=== PATIENT | male | born 1940 | race Caucasian/White ===

== ENCOUNTER 2020-07-16 07:42 | Outpatient (REF) | payer MEDICARE, SELFPAY ==
[2020-07-16 08:30] LABS: Basophils Percent Auto 0.6 % (0-2); Imm Gran Abs Auto 0.01 X10*3/uL (0.00-0.03); Imm Gran Pct Auto 0.2 % (0.0-0.4); MANUAL DIFF FLAG SCAN; Mean Platelet Volume 10.7 fL (9.4-12.4); PLT CLUMP 1; SCAN SMEAR FLAG 1
[2020-07-16 08:32] LABS: Eosinophils Absolute Auto 0.3 X10*3/uL (0.0-0.4); Hematocrit 40.8 % (42-52); Hemoglobin 13.6 g/dl (14.0-18.0); Lymphocytes Absolute Auto 2.5 X10*3/uL (1.2-4.9); Lymphocytes Percent Auto 38.8 % (20-40); Mean Corpuscular HGB Conc 33.3 g/dl (31.0-36.0); Mean Corpuscular Hemoglobin 31.4 pg (27.0-33.0); Mean Corpuscular Volume 94.2 fL (80-98); Monocytes Absolute Auto 0.7 X10*3/uL (0.1-1.2); Monocytes Percent Auto 10.4 % (2-11); Platelet Count 146 X10*3/uL (160-400); Red Blood Count 4.33 X10*6/uL (4.60-5.80); White Blood Count 6.5 X10*3/uL (4.8-10.8)
[2020-07-16 08:50] LABS: B Type Natriuretic Peptide 67 pg/mL (<100)
[2020-07-16 08:56] LABS: Estimated Average Glucose 117 mg/dL; Hemoglobin A1c % 5.7 %
[2020-07-16 09:06] LABS: Glucose Urine UA NEG (NEG); Leukocyte Esterase Urine NEG (NEG); Nitrite Urine NEG (NEG); Specific Gravity - Urine 1.025 (1.005-1.025); Urine Blood NEG (NEG); Urine Ketones NEG (NEG); Urine Protein NEG (NEG-TRACE)
[2020-07-16 09:10] LABS: Appearance Urine CLEAR; Color Urine YELLOW
[2020-07-16 09:17] LABS: Alanine Aminotransferase 33 U/L (0-40); Albumin Level 4.3 g/dL (3.5-5.0); Alkaline Phosphatase 72 U/L (39-117); Anion Gap 13 (12-20); Aspartate Amino Transferase 32 U/L (5-37); Bilirubin Total 0.6 mg/dL (0.0-1.0); Blood Urea Nitrogen 27 mg/dL (9-16); Calcium 8.9 mg/dL (8.4-10.2); Carbon Dioxide 28 mmol/L (22-29); Chloride 103 mmol/L (96-108); Cholesterol 142 mg/dL; Estimated Glomerular Filt Rate 53; Glucose Fasting 103 mg/dL (60-99); HDL Cholesterol 64 mg/dL; LDL Cholesterol Calculated 61 mg/dl; Potassium 4.3 mmol/L (3.3-5.1); Sodium 140 mmol/L (135-145); Total Protein 6.6 g/dL (6.5-8.0); Triglycerides 85 mg/dL
[2020-07-16 09:29] LABS: RBC Urine 0-2 /HPF (0); Squamous Epithelial Cell Urine TRACE /LPF; WBC Urine 0 /HPF (0-4)
== END 2020-07-16 07:43 | disposition home or self-care (01) ==
LOC: HO.LAB 07:42
PROVIDERS: PCP Internal Medicine; Visit Provider Internal Medicine
DX: I11.0 Hypertensive heart disease with heart failure (principal); I50.20 Unspecified systolic (congestive) heart failure; E78.00 Pure hypercholesterolemia, unspecified; R73.01 Impaired fasting glucose; I25.119 Atherosclerotic heart disease of native coronary artery with unspecified angina pectoris; I63.9 Cerebral infarction, unspecified
CPT/HCPCS: 36415; 80053; 80061; 81001; 83036; 83880; 85025

== ENCOUNTER 2021-01-14 09:52 | Outpatient (REF) | payer MEDICARE, SELFPAY ==
[2021-01-14 10:51] LABS: Eosinophils Absolute Auto 0.2 X10*3/uL (0.0-0.4); Mean Corpuscular Hemoglobin 31.3 pg (27.0-33.0); Mean Corpuscular Volume 93.3 fL (80-98); Monocytes Percent Auto 10.7 % (2-11); Red Cell Distribution Width 12.6 % (11.0-16.0)
[2021-01-14 10:53] LABS: Basophils Absolute Auto 0.1 X10*3/uL (0.0-0.2); Eosinophils Percent Auto 4.6 % (0-4); Glucose Urine UA NEG (NEG); Hematocrit 40.3 % (42-52); Hemoglobin 13.5 g/dl (14.0-18.0); Imm Gran Abs Auto 0.02 X10*3/uL (0.00-0.03); Imm Gran Pct Auto 0.4 % (0.0-0.4); Leukocyte Esterase Urine NEG (NEG); Lymphocytes Absolute Auto 1.3 X10*3/uL (1.2-4.9); Lymphocytes Percent Auto 25.2 % (20-40); Mean Corpuscular HGB Conc 33.5 g/dl (31.0-36.0); Mean Platelet Volume 11.2 fL (9.4-12.4); Monocytes Absolute Auto 0.6 X10*3/uL (0.1-1.2); Neutrophils Absolute Auto 3.1 X10*3/uL (2.0-8.3); Neutrophils Percent Auto 58.1 % (45-73); Nitrite Urine NEG (NEG); Platelet Count 121 X10*3/uL (160-400); Red Blood Count 4.32 X10*6/uL (4.60-5.80); UACC Culture Trigger NO; Urine Blood TRACE (NEG); Urine Ketones NEG (NEG); Urine Protein NEG (NEG-TRACE); White Blood Count 5.2 X10*3/uL (4.8-10.8)
[2021-01-14 10:57] LABS: Appearance Urine CLEAR; Color Urine YELLOW; Estimated Average Glucose 120 mg/dL; Hemoglobin A1c % 5.8 %; MANUAL DIFF FLAG NO; SCAN SMEAR FLAG NO
[2021-01-14 11:05] LABS: Mucus Urine 2+ /LPF; WBC Urine 0 /HPF (0-4)
[2021-01-14 11:48] LABS: B Type Natriuretic Peptide 304 pg/mL (<100)
[2021-01-14 11:53] LABS: Alanine Aminotransferase 56 U/L (0-40); Albumin Level 4.2 g/dL (3.5-5.0); Alkaline Phosphatase 83 U/L (39-117); Anion Gap 12 (12-20); Aspartate Amino Transferase 46 U/L (5-37); Bilirubin Total 0.6 mg/dL (0.0-1.0); Blood Urea Nitrogen 17 mg/dL (9-16); Calcium 9.4 mg/dL (8.4-10.2); Carbon Dioxide 27 mmol/L (22-29); Chloride 108 mmol/L (96-108); Cholesterol 134 mg/dL; Estimated Glomerular Filt Rate > 60; Glucose Fasting 100 mg/dL (60-99); HDL Cholesterol 60 mg/dL; LDL Cholesterol Calculated 55 mg/dl; Potassium 5.4 mmol/L (3.3-5.1); Sodium 142 mmol/L (135-145); Total Protein 6.6 g/dL (6.5-8.0); Triglycerides 95 mg/dL
[2021-01-14 12:08] LABS: TSH reflex Free T4 1.01 uIU/mL (0.32-4.0)
== END 2021-01-14 09:53 | disposition home or self-care (01) ==
LOC: HO.LAB 09:52
PROVIDERS: PCP Internal Medicine; Visit Provider Internal Medicine
DX: E78.00 Pure hypercholesterolemia, unspecified (principal); I25.10 Atherosclerotic heart disease of native coronary artery without angina pectoris; I63.9 Cerebral infarction, unspecified; I11.0 Hypertensive heart disease with heart failure; I50.20 Unspecified systolic (congestive) heart failure; D64.9 Anemia, unspecified; R73.01 Impaired fasting glucose; D69.6 Thrombocytopenia, unspecified
CPT/HCPCS: 36415; 80053; 80061; 81001; 83036; 83880; 84443; 85025

== ENCOUNTER → 2021-02-17 14:37 | Outpatient (BNVA) | payer MEDICARE, SELFPAY | PROVIDERS: PCP Internal Medicine; Referring Provider Internal Medicine; Visit Provider Internal Medicine Cardiovascular Disease | DX: I25.10 Atherosclerotic heart disease of native coronary artery without angina pectoris (principal); I10 Essential (primary) hypertension | CPT/HCPCS: 93005; 99212 ==

== ENCOUNTER 2021-02-24 09:02 | Outpatient (REF) | payer MEDICARE, SELFPAY ==
--- NOTE | ~2021-02-24 | US_ITS ---
EXAMINATION: US ABDOMEN COMPLETE CLINICAL INFORMATION: Abnormal blood chemistry. COMPARISON: None TECHNIQUE: Real-time imaging of the abdominal viscera. FINDINGS: PANCREAS: The head and body the pancreas are normal. The tail is not well visualized due to bowel gas. ABDOMINAL AORTA: There is evidence of atherosclerotic disease. The proximal, mid, and distal segments are normal in caliber. INFERIOR VENA CAVA: Visualized portions are normal. LIVER: Normal. The liver is normal in size. The liver contour is normal. Liver echotexture is slightly increased. No focal hepatic lesion. There is no intrahepatic biliary duct dilatation seen. GALLBLADDER: Gallbladder is normal in size. There is ring down artifact seen in the gallbladder fundus suggestive of adenomyomatosis of the gallbladder wall. No definite gallstones are seen. COMMON BILE DUCT: Normal in caliber measuring 0.4 cm in diameter. RIGHT KIDNEY: Normal. No hydronephrosis. No renal calculi or focal parenchymal lesions. The kidney measures 11.0 cm in maximum dimension. LEFT KIDNEY: Normal. No hydronephrosis. No renal calculi or focal parenchymal lesions. The kidney measures 9.3 cm in maximum dimension. SPLEEN: Normal. The spleen measures 10.0 cm in maximum dimension. FREE FLUID: None. US/US abdomen complete IMPRESSION: Slightly echogenic liver probably representing fatty infiltration. Probable adenomyomatosis of the gallbladder wall. Limited visualization of the tail of the pancreas.
== END 2021-02-24 09:03 | disposition home or self-care (01) ==
LOC: HO.US 09:02
PROVIDERS: Visit Provider Internal Medicine
DX: R79.89 Other specified abnormal findings of blood chemistry (principal)
CPT/HCPCS: 76700

== ENCOUNTER 2021-07-16 10:51 | Outpatient (REF) | payer MEDICARE, SELFPAY ==
[2021-07-16 11:25] LABS: MANUAL DIFF FLAG NO
[2021-07-16 12:01] LABS: Appearance Urine CLEAR; Color Urine YELLOW; Glucose Urine UA NEG (NEG); Leukocyte Esterase Urine NEG (NEG); Nitrite Urine NEG (NEG); Urine Blood NEG (NEG); Urine Ketones NEG (NEG); Urine Protein NEG (NEG-TRACE)
[2021-07-16 12:07] LABS: Basophils Percent Auto 0.6 % (0-2); Eosinophils Absolute Auto 0.2 X10*3/uL (0.0-0.4); Eosinophils Percent Auto 3.5 % (0-4); Hemoglobin 14.5 g/dl (14.0-18.0); Imm Gran Abs Auto 0.01 X10*3/uL (0.00-0.03); Imm Gran Pct Auto 0.2 % (0.0-0.4); Lymphocytes Absolute Auto 1.7 X10*3/uL (1.2-4.9); Lymphocytes Percent Auto 27.8 % (20-40); Mean Corpuscular Hemoglobin 30.5 pg (27.0-33.0); Mean Corpuscular Volume 92.4 fL (80.0-98.0); Monocytes Absolute Auto 0.6 X10*3/uL (0.1-1.2); Monocytes Percent Auto 9.3 % (2-11); Neutrophils Absolute Auto 3.7 x10*3/uL (2.0-8.3); Neutrophils Percent Auto 58.6 % (45-73); Platelet Count 144 X10*3/uL (160-400); Red Blood Count 4.76 X10*6/uL (4.60-5.80); Red Cell Distribution Width 12.3 % (11.0-16.0); White Blood Count 6.3 X10*3/uL (4.8-10.8)
[2021-07-16 14:21] LABS: Alanine Aminotransferase 49 U/L (0-40); Albumin Level 4.5 g/dL (3.5-5.0); Alkaline Phosphatase 74 U/L (39-117); Anion Gap 12 (12-20); Aspartate Amino Transferase 43 U/L (5-37); Bilirubin Total 0.8 mg/dL (0.0-1.0); Carbon Dioxide 28 mmol/L (22-29); Cholesterol 162 mg/dL; Estimated Glomerular Filt Rate 54; Glucose Fasting 115 mg/dL (60-99); HDL Cholesterol 66 mg/dL; LDL Cholesterol Calculated 71 mg/dl; Potassium 5.3 mmol/L (3.3-5.1); Sodium 141 mmol/L (135-145); Total Protein 7.2 g/dL (6.5-8.0); Triglycerides 127 mg/dL
[2021-07-16 14:23] LABS: TSH reflex Free T4 0.92 uIU/mL (0.32-4.0)
[2021-07-16 15:09] LABS: Blood Urea Nitrogen 27 mg/dL (9-16); Chloride 106 mmol/L (96-108)
[2021-07-16 15:40] LABS: Estimated Average Glucose 126 mg/dL; Hemoglobin A1C 159.3656 umol/L
== END 2021-07-16 10:52 | disposition home or self-care (01) ==
LOC: HO.LAB 10:51
PROVIDERS: PCP Internal Medicine; Visit Provider Internal Medicine
DX: E78.00 Pure hypercholesterolemia, unspecified (principal); I10 Essential (primary) hypertension; R73.01 Impaired fasting glucose
CPT/HCPCS: 36415; 80053; 80061; 81003; 83036; 84443; 85025

== ENCOUNTER 2022-01-20 11:39 | Outpatient (REF) | payer MEDICARE, SELFPAY ==
[2022-01-20 11:53] LABS: MANUAL DIFF FLAG NO
[2022-01-20 12:33] LABS: Basophils Absolute Auto 0.1 X10*3/uL (0.0-0.2); Basophils Percent Auto 0.8 % (0-2); Eosinophils Absolute Auto 0.3 X10*3/uL (0.0-0.4); Eosinophils Percent Auto 3.8 % (0-4); Hematocrit 43.2 % (42.0-52.0); Hemoglobin 14.5 g/dl (14.0-18.0); Imm Gran Abs Auto 0.01 X10*3/uL (0.00-0.03); Imm Gran Pct Auto 0.2 % (0.0-0.4); Lymphocytes Absolute Auto 1.6 X10*3/uL (1.2-4.9); Lymphocytes Percent Auto 23.9 % (20-40); Mean Corpuscular HGB Conc 33.6 g/dl (31.0-36.0); Mean Corpuscular Hemoglobin 31.2 pg (27.0-33.0); Mean Corpuscular Volume 92.9 fL (80.0-98.0); Mean Platelet Volume 11.1 fL (9.4-12.4); Monocytes Absolute Auto 0.6 X10*3/uL (0.1-1.2); Monocytes Percent Auto 9.3 % (2-11); Neutrophils Absolute Auto 4.1 x10*3/uL (2.0-8.3); Platelet Count 131 X10*3/uL (160-400); Red Blood Count 4.65 X10*6/uL (4.60-5.80); Red Cell Distribution Width 12.9 % (11.0-16.0); White Blood Count 6.6 X10*3/uL (4.8-10.8)
[2022-01-20 12:37] LABS: Estimated Average Glucose 120 mg/dL; Hemoglobin A1C 148.7808 umol/L; Hemoglobin A1c % 5.8 %
[2022-01-20 12:58] LABS: Alanine Aminotransferase 30 U/L (0-40); Albumin Level 4.4 g/dL (3.5-5.0); Alkaline Phosphatase 89 U/L (39-117); Anion Gap 14 (12-20); Aspartate Amino Transferase 27 U/L (5-37); Bilirubin Total 0.6 mg/dL (0.0-1.0); Blood Urea Nitrogen 22 mg/dL (9-16); Calcium 9.3 mg/dL (8.4-10.2); Carbon Dioxide 27 mmol/L (22-29); Chloride 108 mmol/L (96-108); Cholesterol 157 mg/dL; Estimated Glomerular Filt Rate 60; Glucose Fasting 109 mg/dL (60-99); HDL Cholesterol 71 mg/dL; LDL Cholesterol Calculated 63 mg/dl; Potassium 5.1 mmol/L (3.3-5.1); Sodium 144 mmol/L (135-145); Total Protein 6.9 g/dL (6.5-8.0); Triglycerides 115 mg/dL
[2022-01-20 13:19] LABS: TSH reflex Free T4 1.52 uIU/mL (0.32-4.0)
== END 2022-01-20 11:40 | disposition home or self-care (01) ==
LOC: HO.LAB 11:39
PROVIDERS: PCP Internal Medicine; Visit Provider Internal Medicine
DX: I10 Essential (primary) hypertension (principal); R73.01 Impaired fasting glucose; E78.00 Pure hypercholesterolemia, unspecified
CPT/HCPCS: 36415; 80053; 80061; 83036; 84443; 85025

== ENCOUNTER → 2022-02-12 09:01 | Outpatient (BNVA) | payer MEDICARE, SELFPAY | PROVIDERS: PCP Internal Medicine; Referring Provider Internal Medicine; Visit Provider Internal Medicine Cardiovascular Disease | DX: I25.10 Atherosclerotic heart disease of native coronary artery without angina pectoris (principal); I10 Essential (primary) hypertension; Z95.1 Presence of aortocoronary bypass graft; Z79.899 Other long term (current) drug therapy | CPT/HCPCS: 93005; 99212 ==

== ENCOUNTER 2022-07-08 10:36 | Outpatient (REF) | payer MEDICARE, SELFPAY ==
[2022-07-08 10:48] LABS: MANUAL DIFF FLAG NO
[2022-07-08 11:26] LABS: Basophils Percent Auto 0.7 % (0-2); Eosinophils Absolute Auto 0.3 X10*3/uL (0.0-0.4); Hematocrit 42.4 % (42.0-52.0); Imm Gran Abs Auto 0.01 X10*3/uL (0.00-0.03); Imm Gran Pct Auto 0.2 % (0.0-0.4); Lymphocytes Percent Auto 34.8 % (20-40); Mean Corpuscular Hemoglobin 30.6 pg (27.0-33.0); Mean Corpuscular Volume 92.6 fL (80.0-98.0); Mean Platelet Volume 11.3 fL (9.4-12.4); Monocytes Absolute Auto 0.6 X10*3/uL (0.1-1.2); Monocytes Percent Auto 10.4 % (2-11); Neutrophils Absolute Auto 2.9 x10*3/uL (2.0-8.3); Neutrophils Percent Auto 48.9 % (45-73); Platelet Count 132 X10*3/uL (160-400); Red Blood Count 4.58 X10*6/uL (4.60-5.80); Red Cell Distribution Width 12.3 % (11.0-16.0); White Blood Count 5.8 X10*3/uL (4.8-10.8)
[2022-07-08 11:35] LABS: Appearance Urine Clear; Color Urine Yellow; Glucose Urine UA Negative (Negative); Leukocyte Esterase Urine Negative (Negative); Nitrite Urine Negative (Negative); PH 6.5 (5.0-9.0); Urine Blood Negative (Negative); Urine Ketones Negative (Negative); Urine Protein Negative (Neg-Trace)
[2022-07-08 12:02] LABS: Estimated Average Glucose 126 mg/dL
[2022-07-08 12:36] LABS: Alanine Aminotransferase 25 U/L (0-40); Albumin Level 4.2 g/dL (3.5-5.0); Alkaline Phosphatase 73 U/L (39-117); Anion Gap 12 (12-20); Aspartate Amino Transferase 27 U/L (5-37); Bilirubin Total 0.7 mg/dL (0.0-1.0); Blood Urea Nitrogen 21 mg/dL (9-16); Calcium 9.5 mg/dL (8.4-10.2); Carbon Dioxide 29 mmol/L (22-29); Chloride 104 mmol/L (96-108); Cholesterol 169 mg/dL; Estimated Glomerular Filt Rate 56; Glucose Fasting 100 mg/dL (60-99); HDL Cholesterol 69 mg/dL; LDL Cholesterol Calculated 78 mg/dl; Potassium 4.2 mmol/L (3.3-5.1); Sodium 141 mmol/L (135-145); TSH reflex Free T4 2.57 uIU/mL (0.32-4.0); Total Protein 6.5 g/dL (6.5-8.0); Triglycerides 112 mg/dL; Vitamin D 25-OH Total 29.1 ng/mL (>30)
== END 2022-07-08 10:37 | disposition home or self-care (01) ==
LOC: HO.LAB 10:36
PROVIDERS: PCP Internal Medicine; Visit Provider Internal Medicine
DX: E55.9 Vitamin D deficiency, unspecified (principal); I10 Essential (primary) hypertension; E11.9 Type 2 diabetes mellitus without complications; E78.00 Pure hypercholesterolemia, unspecified
CPT/HCPCS: 36415; 80053; 80061; 81003; 82306; 83036; 84443; 85025

== ENCOUNTER 2022-07-22 14:12 | Outpatient (REF) | payer MEDICARE, SELFPAY ==
[2022-07-22 16:40] LABS: Prostate Specific Antigen 5.51 ng/mL (<0.05-4.0)
== END 2022-07-22 14:13 | disposition home or self-care (01) ==
LOC: HO.LAB 14:12
PROVIDERS: PCP Internal Medicine; Visit Provider Internal Medicine
DX: Z12.5 Encounter for screening for malignant neoplasm of prostate (principal); N40.0 Benign prostatic hyperplasia without lower urinary tract symptoms; R35.0 Frequency of micturition
CPT/HCPCS: 36415; 84153

== ENCOUNTER 2022-08-07 08:48 | Outpatient (REF) | payer MEDICARE, SELFPAY ==
[2022-08-07 16:31] LABS: Urine Cytology See Pathology rpt
== END 2022-08-07 08:49 | disposition home or self-care (01) ==
LOC: HO.LAB 08:48
PROVIDERS: PCP Internal Medicine; Visit Provider Urology
DX: N32.81 Overactive bladder (principal); R35.0 Frequency of micturition; N40.0 Benign prostatic hyperplasia without lower urinary tract symptoms; R97.20 Elevated prostate specific antigen [PSA]; I63.9 Cerebral infarction, unspecified
CPT/HCPCS: 51798; 88112; 99202

== ENCOUNTER 2022-10-27 08:55 | Outpatient (REF) | payer MEDICARE, SELFPAY ==
--- NOTE | ~2022-10-27 | US_ITS ---
EXAMINATION: US RETROPERITONEAL COMPLETE (RENAL) CLINICAL INFORMATION: Benign prostatic hyperplasia without lower urinary tract symptoms. COMPARISON: Ultrasound abdomen complete 02/24/2021. TECHNIQUE: Real-time imaging of the kidneys and bladder. FINDINGS: RIGHT KIDNEY: 10.6 x 6.5 x 4.9 cm (SAG x AP x TRV). The kidney is normal in size, contour, and echogenicity. Renal cortical thickness is normal. There is an upper pole 2 mm echogenic focus consistent with a nonobstructing stone. No focal parenchymal lesions or hydronephrosis. LEFT KIDNEY: 9.6 x 5.3 x 5.0 cm (SAG x AP x TRV). The kidney is normal in size, contour, and echogenicity. Renal cortical thickness is normal. There is a 3 mm lower pole echogenic focus seen consistent with a nonobstructing stone. No focal parenchymal lesions or hydronephrosis. BLADDER: Well distended and normal. Bilateral ureteral jets are demonstrated. Prevoid bladder volume is 155.1 mL. Postvoid bladder volume is 76.3 mL. ADDITIONAL FINDINGS: Prostate is enlarged at 81.2 mL. US/US retroperitoneal comp IMPRESSION: 1. Bilateral nonobstructing renal calculi. 2. BPH with 81 mL prostate and 76 mL postvoid residual.
== END 2022-10-27 08:56 | disposition home or self-care (01) ==
LOC: HO.US 08:55
PROVIDERS: PCP Internal Medicine; Visit Provider Urology
DX: N40.0 Benign prostatic hyperplasia without lower urinary tract symptoms (principal); R35.0 Frequency of micturition
CPT/HCPCS: 76770

== ENCOUNTER 2022-11-03 09:29 | Outpatient (REF) | payer MEDICARE, SELFPAY ==
[2022-11-03 12:21] LABS: PSA,Total (Free>4and<10) 3.08 ng/mL (0.00-4.00)
== END 2022-11-03 09:30 | disposition home or self-care (01) ==
LOC: HO.LAB 09:29
PROVIDERS: Visit Provider Urology
DX: Z12.5 Encounter for screening for malignant neoplasm of prostate (principal); R97.20 Elevated prostate specific antigen [PSA]
CPT/HCPCS: 36415; 84153

== ENCOUNTER 2022-11-24 11:00 | Outpatient (RCR) | payer MEDICARE, SELFPAY ==
--- NOTE | 2022-11-17 11:52 | MHC.PT.EP ---
[facility] [place] [facility] [place] [facility] [place] [facility] [address] Andra Manzo [address] [phone] F: [phone] F: [phone] F: [phone] F: [phone] Physical Therapy Plan of Care Date of Evaluation: Date of Surgery: NA Diagnosis: Overactive bladder, frequency of micturition, cerebral infarction Assessment: Steven is a 82 year old male who is referred to PT for urgency and frequency of micturition . He reports of having symptoms of urgency and urge incontinence for about 1 year. Also reports of having urgency with running water. Denies any trauma. He states that he has been managing his symptoms with kegels exercises but it has not been working consistently. He denies having any bowel issues or issues with sexual function. He denied a pelvic floor exam. I therefore assessed his lumbar spine and B LE and presented with ROM and strength WFL. He would benefit from skilled PT to educate him on ways to manage urgency, bowel and bladder habits and B LE stretches. He was recommended 1/week for 4 weeks however Steven stated he would like to come back only one more time and then decide. Frequency and Duration: The patient will be seen 1/week for 4 weeks Short Term Goals: In 2 weeks- 1. Pt will be able to state at least 3 urge suppression techniques 2. Pt will have no sense of urgency on hearing running water Senior Care Goals: In 4 weeks- 1. Pt will have no symptoms of UUI 2. Pt will drop night urination to 1/night 3. Pt will be independent with [facility] for symptom management and maintenance following d/c. Treatment Plan: Modalities to reduce pain, spasms and effusion. Manual therapy to restore motion and function. Therapeutic exercise to improve strength and flexibility. Neuromuscular re-education for posture and balance. Therapeutic activities to return to functional activities of daily living. Electronically signed by: Please sign and return to therapist. Thank you for your referral.
--- NOTE | 2022-11-24 11:50 | MHC.PT.DC ---
[facility] [place] Office [place] Office [place] [facility] [address] [phone] F: [phone] F: [phone] F: [phone] F: [phone] Physical Therapy Discharge Report Diagnosis: Overactive bladder, frequency of micturition, cerebral infarction Date of Surgery: NA Date of Evaluation: 11/17/22 Date of Discharge: 11/24/22 Treatments to Date: 2 Cancellations to Date: 0 No Shows to Date: Discharge Status: Patient Elected to Stop Discharge Summary: Steven requested today to be his last day. He just wanted to learn general PFM stretching and strengthening exercises and trial them at home to resolve his symptoms. He did not want a PFM exam either. I therefore provided him with general pelvic floor stretches and strengthening and d/c him from PT. Steven was in agreement with the plan. Electronically signed by: Nga Sigala PT DPT Please sign and return to therapist. Thank you for your referral.
== END 2022-11-24 11:50 | disposition home or self-care (01) ==
LOC: HO.PT 11:00
PROVIDERS: PCP Internal Medicine; Visit Provider Urology
DX: N32.81 Overactive bladder (principal); R35.0 Frequency of micturition; I63.9 Cerebral infarction, unspecified
CPT/HCPCS: 97110; 97112; 97161

== ENCOUNTER → 2022-11-25 08:59 | Outpatient (BNVA) | payer MEDICARE, SELFPAY | PROVIDERS: PCP Internal Medicine; Visit Provider Urology | DX: R35.0 Frequency of micturition (principal); N40.0 Benign prostatic hyperplasia without lower urinary tract symptoms; N32.81 Overactive bladder | CPT/HCPCS: 51798; 99212 ==

== ENCOUNTER 2023-01-11 10:16 | Outpatient (REF) | payer MEDICARE, SELFPAY ==
[2023-01-11 10:38] LABS: MANUAL DIFF FLAG NO
[2023-01-11 11:45] LABS: Basophils Percent Auto 0.8 % (0-2); Eosinophils Absolute Auto 0.3 X10*3/uL (0.0-0.4); Eosinophils Percent Auto 5.3 % (0-4); Hematocrit 41.2 % (42.0-52.0); Hemoglobin 13.8 g/dl (14.0-18.0); Imm Gran Abs Auto 0.01 X10*3/uL (0.00-0.03); Imm Gran Pct Auto 0.2 % (0.0-0.4); Lymphocytes Absolute Auto 1.3 X10*3/uL (1.2-4.9); Mean Corpuscular HGB Conc 33.5 g/dl (31.0-36.0); Mean Corpuscular Hemoglobin 31.3 pg (27.0-33.0); Mean Corpuscular Volume 93.4 fL (80.0-98.0); Mean Platelet Volume 10.8 fL (9.4-12.4); Monocytes Absolute Auto 0.8 X10*3/uL (0.1-1.2); Monocytes Percent Auto 16.1 % (2-11); Neutrophils Absolute Auto 2.5 x10*3/uL (2.0-8.3); Neutrophils Percent Auto 50.6 % (45-73); Platelet Count 124 X10*3/uL (160-400); Red Blood Count 4.41 X10*6/uL (4.60-5.80); Red Cell Distribution Width 12.8 % (11.0-16.0); White Blood Count 4.9 X10*3/uL (4.8-10.8)
[2023-01-11 12:04] LABS: Appearance Urine Clear; Color Urine Yellow; Glucose Urine UA Negative (Negative); Leukocyte Esterase Urine Negative (Negative); Nitrite Urine Negative (Negative); PH 5.5 (5.0-9.0); Urine Blood Negative (Negative); Urine Ketones Negative (Negative); Urine Protein Negative (Neg-Trace)
[2023-01-11 12:08] LABS: Estimated Average Glucose 120 mg/dL; Hemoglobin A1c % 5.8 %
[2023-01-11 12:48] LABS: Alanine Aminotransferase 52 U/L (0-40); Albumin Level 4.2 g/dL (3.5-5.0); Alkaline Phosphatase 71 U/L (39-117); Anion Gap 14 (12-20); Aspartate Amino Transferase 45 U/L (5-37); Bilirubin Total 0.6 mg/dL (0.0-1.0); Blood Urea Nitrogen 23 mg/dL (9-16); Calcium 9.5 mg/dL (8.4-10.2); Carbon Dioxide 24 mmol/L (22-29); Chloride 108 mmol/L (96-108); Cholesterol 139 mg/dL; Estimated Glomerular Filt Rate > 60; Glucose Fasting 113 mg/dL (60-99); HDL Cholesterol 59 mg/dL; LDL Cholesterol Calculated 61 mg/dl; Potassium 5.4 mmol/L (3.3-5.1); Sodium 141 mmol/L (135-145); TSH reflex Free T4 1.52 uIU/mL (0.32-4.0); Triglycerides 98 mg/dL; Vitamin D 25-OH Total 36.5 ng/mL (>30)
== END 2023-01-11 10:17 | disposition home or self-care (01) ==
LOC: HO.LAB 10:16
PROVIDERS: PCP Internal Medicine; Visit Provider Internal Medicine
DX: E78.00 Pure hypercholesterolemia, unspecified (principal); R30.0 Dysuria; R73.01 Impaired fasting glucose; E55.9 Vitamin D deficiency, unspecified; I10 Essential (primary) hypertension
CPT/HCPCS: 36415; 80053; 80061; 81003; 82306; 83036; 84443; 85025

== ENCOUNTER 2023-01-18 09:50 | Outpatient (AMB) | payer MEDICARE, SELFPAY ==
[2023-01-18 09:50] VITALS: BP 124/80; PULSE 55; O2SAT 98; BMI 22.5
--- NOTE | 2023-01-18 09:50 | A.OFFPC_ITS ---
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: No Accompanied by: Self / Same As Patient Allergies No Known Allergies [No Known Allergies*] Allergy (Verified 01/18/23 10:15) Medication List - Last Reconciled 01/18/23 by Pancho Quiñones MD aspirin 81 mg PO DAILY atorvastatin 80 mg PO DAILY clopidogrel 75 mg PO DAILY finasteride (Proscar) 5 mg PO DAILY 90 days lisinopril 5 mg PO DAILY metoprolol succinate ER 25 mg PO DAILY Tobacco use date assessed: 01/18/23 Fall risk assessment: No Falls in past year Last assessed Fall Risk: 01/18/23 Dental Screening Dental Screen Date: 01/18/23 Did you have a dental visit in the last 12 months?: Yes Did you have a dental problem in the last 6 months where you did not have access to dental care?: No Was dental information given to patient?: Patient has dentist HPI F/U HPI Details Patient comes in today for his follow up visit States that he feels okay He denies any headaches or dizziness Denies any chest pains, no SOB No nausea/vomiting, no abdominal pain No change in bowel habits noted Had his follow up labs done last week - to discuss his results [facility] Medical History Allergic rhinitis Anemia Benign essential hypertension Cerebrovascular accident (CVA) Coronary artery disease Elevated LFTs Impaired fasting glucose Pure hypercholesterolemia Systolic congestive heart failure Thrombocytopenia Surgical History History of coronary artery bypass graft Family History Father No problems noted. Mother No problems noted. Sister In good health Son In good health Daughter In good health Social History Housing: House Alcohol intake: current Alcohol intake frequency: a few times a week Alcohol type: beer Patient Tobacco Use Status: Former Tobacco user e-Cigarette/Vaping Use: Never Used Second Hand Smoke Exposure: Yes service: Yes Current occupational status: retired Cognitive needs: No Hearing needs: No Vision needs: No Questionnaire PHQ-9 Over the last 2 weeks, how often have you been bothered by any of the following problems? 1. Little interest or pleasure in doing things: not at all 2. Feeling down, depressed, or hopeless: not at all 3. Trouble falling or staying asleep, or sleeping too much: not at all 4. Feeling tired or having little energy: not at all 5. Poor appetite or overeating: not at all 6. Feeling bad about yourself - or that you are a failure or have let yourself or your family down: not at all 7. Trouble concentrating on things, such as reading the newspaper or watching television: not at all 8. Moving or speaking so slowly that other people could have noticed. Or the opposite - being so fidgety or restless that you have been moving around a lot more than usual: not at all 9. Thoughts that you would be better off or of hurting yourself in some way: not at all Total score: 0 Depression Screening Interpretation: Negative [id number] - PHQ-9 Billing: Yes Source: Developed by Drs. Romulo Woo, Dolores Correa, Francisco Mendoza and colleagues, with an educational ash from [employer]. Thrive Questionnaire Date Thrive assessed: 01/18/23 What is your living situation today?: I have a steady place to live Within the past 12 months, did the food you bought not last and you didn't have the money to get more?: Never true Within the past 12 months, did you worry whether your food would run out before you got money to buy more?: Never true Do you have trouble paying for medicines?: No Do you have trouble getting transportation to medical appointments?: No Do you have trouble paying your heating and electricity bill?: No Do you have trouble taking care of your child, family member or friend?: No Do you have trouble with day-to-day activities such as bathing, preparing meals, shopping, managing finances, etc.?: No Are you currently unemployed and looking for a job?: No Are you interested in more education?: No Please select the resources that you would like help with: None Currently or been in a relationship where the following occur: no concerns reported AUDIT C Alcohol Use Questionnaire (AUDIT-C) 1. How often do you have a drink containing alcohol?: 2-3 times a week 2. How many drinks containing alcohol do you have on a typical day when you are drinking?: 1 or 2 3. How often do you have six or more drinks on one occasion?: Never Total Score: 3 Score Reviewed/Action Taken: Yes MELANIE-7 AMB Questionnaire MELANIE-7 Date MELANIE - 7 assessed: 01/18/23 Feeling nervous, anxious, or on edge: 0 = Not at all Not being able to stop or control worryin = Not at all Worrying too much about different things: 0 = Not at all Trouble relaxin = Not at all Being so restless that it is hard to sit still: 0 = Not at all Becoming easily annoyed or irritable: 0 = Not at all Feeling afraid as if something awful might happen: 0 = Not at all Total MELANIE-7 score (0-4 normal; 5-9 mild; 10-14 moderate; 15-21 severe): 0 Source: Developed by Drs. Romulo Woo, Dolores Correa, Francisco Mendoza and colleagues, with an educational ash from [employer]. Review of Systems Const Denies chills, Denies fatigue, Denies fever(s) and Denies headache(s) ENT Denies dysphagia, Denies dizziness, Denies otalgia, Denies headache(s), Denies nasal congestion, Denies neck pain and Denies sore throat Card Denies chest pain, Denies palpitations and Denies dyspnea Resp Denies cough and Denies dyspnea GI Denies abdominal pain, Denies constipation, Denies dysphagia, Denies heartburn, Denies diarrhea, Denies nausea and Denies vomiting Denies dysuria, Reports nocturia, Reports urinary frequency and Reports urinary incontinence (occasional urge incontinence) Musc Denies neck pain Neuro Denies dizziness and Denies headache(s) Endo Denies fatigue and Denies palpitations Physical exam (Primary Care) Vital Signs: Last Vital Signs Pulse 55 01/18/23 09:50 BP 124/80 01/18/23 09:50 Pulse Ox 98 01/18/23 09:50 Oxygen Delivery Method Room Air 01/18/23 09:50 BMI result Body Mass Index 22.5 Tobacco/Smoking Status: Tobacco use Status Tobacco use date assessed 01/18/23 01/18/23 09:56 Patient Tobacco Use Status Former Tobacco user 01/18/23 09:56 e-Cigarette/Vaping Use Never Used 01/18/23 09:56 PHQ-9: PHQ-9 Score PHQ-9: Total score 0 01/18/23 09:56 Depression Screening Interpretation: Negative Thrive Assessment: Date of Thrive Assessment Date Thrive assessed 01/18/23 01/18/23 09:56 Currently or been in a relationship where the following occur: no concerns reported Const General: no acute distress and alert HENMT Ears: TM's normal bilaterally and EAC's normal Throat: Yes posterior oropharynx normal and Yes tonsils normal (no TP congestion) Neck Neck: Yes no lymphadenopathy and Yes supple Resp Auscultation: clear to auscultation bilaterally, no rales and no wheezes Cardio Rate: regular rate Rhythm: regular rhythm Heart sounds: no murmurs GI Palpation (GI): Soft to palpation and nontender Auscultation: normal bowel sounds Skin Rashes: no rashes Extrem General: Yes no clubbing, cyanosis or edema Results Reviewed Results Reviewed: Laboratory Tests 01/11/23 01/11/23 01/11/23 10:32 10:32 10:32 WBC 4.9 Hgb 13.8 L Hct 41.2 L Plt Count 124 L Sodium 141 Potassium 5.4 H D Creatinine 1.13 Estimated GFR > 60 Fasting Glucose 113 H Hemoglobin A1c % 5.8 Calcium 9.5 AST 45 H ALT 52 H Triglycerides 98 Cholesterol 139 LDL Cholesterol, Calc 61 HDL Cholesterol 59 25-OH Vitamin D Total 36.5 TSH 1.52 Ur Specific [place] Urine Protein Urine Glucose (UA) Urine Blood 01/11/23 10:35 WBC Hgb Hct Plt Count Sodium Potassium Creatinine Estimated GFR Fasting Glucose Hemoglobin A1c % Calcium AST ALT Triglycerides Cholesterol LDL Cholesterol, Calc HDL Cholesterol 25-OH Vitamin D Total TSH Ur Specific [place] 1.020 Urine Protein Negative Urine Glucose (UA) Negative Urine Blood Negative Assessment and Plan Assessment & Plan (1) Coronary artery disease: Comment: S/P CABG x 3 at [facility] on 03/08/2018 S/P cardiac rehab Code(s): I25.10 - Atherosclerotic heart disease of [place] coronary artery without angina pectoris Qualifiers: Coronary Disease-Associated Artery/Lesion type: [place] artery [place] vs. transplanted heart: [place] heart Associated angina: without angina Qualified Code(s): I25.10 - Atherosclerotic heart disease of [place] coronary artery without angina pectoris Plan: Patient remains asymptomatic Continue Clopidogrel 75 mg QD and continue lifelong anticoagulation with low dose Aspirin 81 mg QD Continue Metoprolol ER 25 mg QD Per cardiology, will need to reassess with perfusion imaging studies/stress testing 5 years from his CABG (2022) Follow up with cardiology as scheduled - has appt scheduled in February 2023 (2) Cerebrovascular accident (CVA): Code(s): I63.9 - Cerebral infarction, unspecified Qualifiers: CVA mechanism: unspecified Qualified Code(s): I63.9 - Cerebral infarction, unspecified Plan: Emphasized again that he needs to aggressively control his risk factors (BP and cholesterol primarily) to minimize risks of recurrence (3) Systolic congestive heart failure: Comment: EF was at 40% on most recent echocardiogram Code(s): I50.20 - Unspecified systolic (congestive) heart failure Qualifiers: Heart failure chronicity: unspecified Qualified Code(s): I50.20 - Unspecified systolic (congestive) heart failure Plan: Currently compensated with no heart failure symptoms Should consider repeat echocardiogram at some point to reassess his cardiac function Follow up with cardiology as scheduled (4) Benign essential hypertension: Code(s): I10 - Essential (primary) hypertension Plan: Reinforced low sodium diet - goal is systolic BP of 120 mm or less Continue Lisinopril 5 mg QD and Metoprolol ER 25 mg QD (5) Pure hypercholesterolemia: Code(s): E78.00 - Pure hypercholesterolemia, unspecified Plan: Results of his labs done last week reviewed and discussed with patient Reinforced low cholesterol diet Continue Atorvastatin 80 mg QD Will recheck his labs in 6 months for follow up (6) Impaired fasting glucose: Code(s): R73.01 - Impaired fasting glucose Plan: HgbA1c was at 5.8% on his labs done last week; was at 6.0% previously Reinforced low calorie diet/exercise as tolerated (7) Anemia: Code(s): D64.9 - Anemia, unspecified Qualifiers: Anemia type: unspecified type Qualified Code(s): D64.9 - Anemia, unspecified Plan: Stable - will continue to monitor his CBC regularly (8) Thrombocytopenia: Code(s): D69.6 - Thrombocytopenia, unspecified Plan: Mild/stable, with no acute bleeding - most likely due to current antiplatelet Tx Will continue to monitor his platelet counts regularly (9) Elevated LFTs: Code(s): R79.89 - Other specified abnormal findings of blood chemistry Plan: His LFTs have increased again slightly on his recent labs Reinforced avoidance of high-dose Acetaminophen Rx; patient states that he does not drink alcohol Will continue to monitor his LFTs regularly (10) Allergic rhinitis: Code(s): J30.9 - Allergic rhinitis, unspecified Plan: Continue OTC Loratadine 10 mg QD PRN (11) Urinary frequency: Code(s): R35.0 - Frequency of micturition Plan: Most likely due to BPH Continue Finasteride 5 mg QD - started by urology Follow up with urology as scheduled Plan Follow up in 6 months Orders: Orders Complete Blood Count Auto Diff 6 Months D64.9 - Anemia, unspecified, D69.6 - Thrombocytopenia, unspecified, I10 - Essential (primary) hypertension B Type Natriuretic Peptide 6 Months I50.9 - Heart failure, unspecified Comprehensive [place]. Panel Fast 6 Months E78.00 - Pure hypercholesterolemia, unspecified Hemoglobin A1c 6 Months R73.01 - Impaired fasting glucose Lipid Panel 6 Months E78.00 - Pure hypercholesterolemia, unspecified TSH reflex Free T4 6 Months E78.00 - Pure hypercholesterolemia, unspecified Vitamin D 25-OH Total 6 Months E55.9 - Vitamin D deficiency, unspecified UA CC w/rflx Micro + Cult 6 Months R30.0 - Dysuria Coding Level of Care Code Est Pt Level 4 (68494) Diagnoses Coronary artery disease I25.10 Coronary Disease-Associated Artery/Lesion type: [place] artery [place] vs. transplanted heart: [place] heart Associated angina: without angina Cerebrovascular accident (CVA) I63.9 CVA mechanism: unspecified Systolic congestive heart failure I50.20 Heart failure chronicity: unspecified Benign essential hypertension I10 Pure hypercholesterolemia E78.00 Impaired fasting glucose R73.01 Anemia D64.9 Anemia type: unspecified type Thrombocytopenia D69.6 Elevated LFTs R79.89 Allergic rhinitis J30.9 Urinary frequency R35.0
== END 2023-01-18 10:36 | disposition home or self-care (01) ==
PROVIDERS: PCP Internal Medicine; Visit Provider Internal Medicine
DX: I11.0 Hypertensive heart disease with heart failure (principal); Z86.73 Personal history of transient ischemic attack (TIA), and cerebral infarction without residual deficits; I50.20 Unspecified systolic (congestive) heart failure; D69.6 Thrombocytopenia, unspecified; I25.10 Atherosclerotic heart disease of native coronary artery without angina pectoris; E78.00 Pure hypercholesterolemia, unspecified; R73.01 Impaired fasting glucose; D64.9 Anemia, unspecified; R79.89 Other specified abnormal findings of blood chemistry; J30.9 Allergic rhinitis, unspecified; R35.0 Frequency of micturition
CPT/HCPCS: 99214

== ENCOUNTER → 2023-02-11 07:50 | Outpatient (REF) | payer MEDICARE, SELFPAY ==
--- NOTE | ~2023-02-11 | NM_ITS ---
Exercise Myocardial perfusion study Indication: Atherosclerotic cardiovascular disease to evaluate for myocardial ischemia Technique: The patient was brought in for an exercise perfusion study on 02/11/2023. Patient performed exercise as per Ray protocol and was injected 25 mCi of sestamibi was given intravenously one target HR was achieved. Images were obtained using the SPECT gamma camera interlaced with the gating device. Images were obtained in supine position. Resting perfusion study was performed on 02/12/2023. Patient was administered 25 mCi of sestamibi intravenously at rest. Images were then obtained in supine position. Images obtained with and without CT attenuation. Total DLP 82 mGy-cm Images were processed with the software and compared side to side in short axis, horizontal long axis and vertical long axis views. Findings: The stress perfusion study showed dated images show severely reduced uptake in the basal inferior and mildly reduced uptake in the mid and apical inferior as well as moderately reduced uptake in the basal inferolateral wall of the LV myocardium. Attenuation corrected images show severely reduced uptake in the basal inferior and mildly reduced uptake in the mid and apical inferior as well as mildly reduced uptake in the mid and basal inferolateral and basal lateral wall of the LV myocardium. Remainder of the LV myocardium is normally perfused. The gated study shows normal LV systolic function with calculated LVEF of 54%. LV cavity is mildly dilated in size. The gated study shows normal systolic wall thickening and contraction of all segments. There is no transient ischemic dilation. Resting study shows improved uptake in the basal inferior as well as inferior and inferolateral wall of the LV myocardium in both attenuated as well as non attenuated corrected images. Gating at rest reveals normal systolic wall motion with ejection fraction at 50%. The findings are consistent with moderate size mild to moderate intensity inferior and basal and mid inferolateral wall ischemia. NM/NM rolf perf SPECT rest & str Impression: 1. Moderate-sized mild to moderate intensity basal and mid inferolateral and inferior wall ischemia in RCA/circumflex distribution 2. Gated LVEF is 54% 3. Transient ischemic dilatation not present Stress EKG is negative for ischemia
--- NOTE | 2023-02-11 07:54 | CA_ITS ---
Acquisition Time: 2023-02-11 08:57:50 Total Exercise Time: 00:08:30 Test Indications: CAD Medications: SEE H Protocol: SG Max HR: 123 BPM 87% of Pred: 140 BPM Max BP: 158/060 mmHG Max Work Load: 9.6 METS Exercise stress test exercise 8 min 30 sec of Sg protocol (stage 4 decreased speed 3 mph, 15.6% grade) achieving 87%, without anginal symptoms, without arrhythmias, with normotensive response to exercise, without EKG changes. Nuclear images pending. Test reviewed with Dr. Herrera Mild upsloping ST depression during peak exercise. During recovery, I, aVL show T inversion. Referred By: Alfredo Herrera Overread By: BRIANNE ALVAREZ
--- NOTE | 2023-02-11 07:54 | CA_ITS ---
Transthoracic Echocardiogram Patient (Last, First, Middle): Steven Simms P Gender: Male Date of : 1940 Age: 82 Procedure Date: 02/11/2023 Procedure Type: Transthoracic Echocardiogram Location: OP Height: 167.64 cm Weight: 60.78 kg BSA: 1.69 m2 Heart Rate: bpm BP: 138 / 58 mmHg Cloth Framer: KENZIE Referring MD: Alfredo Herrera MD Symptoms: I25.10 - Atherosclerotic heart disease of [place] coronary artery without... Study Quality: Fair Conclusions: - 1. Normal LV ejection fraction 55-60% with impaired relaxation filling pattern with underlying regional wall motion abnormality consistent with coronary artery disease 2. Trivial aortic regurgitation 3. Normal RV systolic pressure 4. No gross pericardial effusion Findings Left Ventricle Normal left ventricular size and systolic function. There is mildly increased left ventricular wall thickness. The visually estimated ejection fraction is between 55-60%. Spectral Doppler is indicative of an impaired relaxation filling pattern. E/E prime ratio is between 8 and 15 consistent with indeterminate filling pressures. Wall Motion Rest Echo Findings The mid inferior and mid inferoseptal segments are hypokinetic. The basal inferior, apical septum, and basal inferoseptal segments are akinetic. All other scored wall segments showed normal motion. Right Ventricle Mildly increased right ventricular cavity size. There is mildly decreased right ventricular systolic function. Atria The left atrium is normal in size. There is no evidence of interatrial shunt. The right atrium was not well visualized. Aortic Valve There is mild calcification of the aortic valve. There is no aortic valve stenosis. There is trace (trivial) aortic valve regurgitation. Mitral Valve There is mild anterior and posterior mitral leaflet thickening. There is mild mitral annular calcification. There is trace mitral valve regurgitation. There is no mitral valve stenosis. Pulmonic Valve The pulmonic valve is likely normal. Tricuspid Valve Normal tricuspid valve structure. There is trace tricuspid valve regurgitation. The right ventricular systolic pressure is normal. The right ventricular systolic pressure is 24 mmHg. Normal right atrial pressure. There is no evidence of pulmonary hypertension. Great Vessels All visible segments of the aorta are normal in size. The pulmonary artery was not well visualized. Venous The inferior vena cava is normal in size and collapses greater than 50% with inspiration. Pericardium/Pleural There is no evidence of pericardial effusion. Prior Study Comparison No significant change compared to prior study dated: 01/23/2020. Measurements 2D Linear Measurements IVSd: 1.21 0.6-0.9/0.6-1.0 cm LVIDd: 4.48 3.9-5.3/4.2-5.9 cm LVIDd Index: 2.65 2.4-3.2/2.2-3.1 cm/m2 LVIDs: 2.88 2.0-3.6 cm LVPWd: 1.13 0.7-1.1 cm LA Diam: 3.70 2.7-3.8/3.0-4.0 cm LAIDs Index: 2.19 1.5-2.3 cm/m2 LV Mass: 236.39 67-162/88-224 g LV Mass Index: 139.88 43-95/49-115 g/m2 LVOT Diam: 2.10 3.0+(-)1.3 cm 2D Systolic Function EF 4C: 63.70 >55% EF 2C: 47.90 >55% EF BiP: 57.50 >55% Mitral Valve MV Pk E: 0.56 MV PK A: 0.81 MV Decel Time: 315.00 E/A: 0.70 E'Lateral: 8.49 E'Medial: 3.81 E/E' Med: 14.60 E/E' Lat: 6.60 PHT: 92.00 MVA PHT: 2.39 Decel [place]: 1.77 Aortic Valve AoV Pk Clarke: 1.36 AoV Mn Clarke: 0.98 AoV VTI: 0.34 AoV Pk Grad: 7.00 Aov Mn Grad: 4.00 MIKEL Cont.VTI: 2.29 LVOT LVOT Pk Clarke: 0.84 LVOT Mn Clarke: 0.57 LVOT VTI: 0.23 LVOT Pk Grad: 3.00 LVOT Mn Grad: 2.00 LVOT Diam: 2.10 LVOT Area: 3.46 Diastolic Function MV Pk E: 0.56 MV Pk A: 0.81 E/A: 0.70 E'Medial: 3.81 E/E' Med: 14.60 E' Laterial: 8.49 E/E' Lat: 6.60 Right Ventricle TAPSE (mm): 14.30 TVS' Clarke: 8.38 Tricuspid Valve TR Pk Clarke: 2.28 TR Pk Grad: 21.00 RA Press: 3.00 RVSP: 24.00 Great Vessels Aorta Sinus of Valsalva: 3.00 2.0-3.[address] [place]: 2.60 1.7-3.4 cm Ao Asc: 3.20 2.1-3.4 cm Updated in Other Vendor System with Status of Final Alfredo Herrera MD electronically signed on 02/11/2023 11:06:11 AM with status of Final
== END ==
LOC: HO.CARD 07:50
PROVIDERS: PCP Internal Medicine; Visit Provider Internal Medicine Cardiovascular Disease
DX: I25.10 Atherosclerotic heart disease of native coronary artery without angina pectoris (principal)
CPT/HCPCS: 78452; 93017; 93306; A9500

== ENCOUNTER → 2023-02-11 07:54 | Outpatient (BNV) | payer MEDICARE, SELFPAY | PROVIDERS: PCP Internal Medicine; Visit Provider Internal Medicine Cardiovascular Disease | DX: I25.10 Atherosclerotic heart disease of native coronary artery without angina pectoris (principal) | CPT/HCPCS: 78452; 93016; 93018; 93306 ==

== ENCOUNTER 2023-02-16 10:51 | Outpatient (AMB) | payer MEDICARE, SELFPAY ==
[2023-02-16 10:56] VITALS: BP 120/70; PULSE 59; BMI 22.4
--- NOTE | 2023-02-16 10:56 | A.OFFVIS_ITS ---
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 Recent echocardiogram shows preserved LV systolic function with wall motion abnormality in the RCA territory with recent screening myocardial perfusion imaging showing ischemia in the circumflex and RCA territory. He continues to remain extremely active and his exercise time on the treadmill was 8-1/2 minutes on Ray protocol. He denies any exertional chest pain or shortness of breath. Denies any heart failure symptoms. Denies any palpitations, lightheadedness, syncope. [facility] Medical History Allergic rhinitis Elevated LFTs Thrombocytopenia Anemia Impaired fasting glucose Pure hypercholesterolemia Benign essential hypertension Systolic congestive heart failure Cerebrovascular accident (CVA) Coronary artery disease Surgical History History of coronary artery bypass graft Family History Father No problems noted. Mother No problems noted. Sister In good health Son In good health Daughter In good health Social History Housing: House Alcohol intake: current Alcohol intake frequency: a few times a week Alcohol type: beer Patient Tobacco Use Status: Former Tobacco user e-Cigarette/Vaping Use: Never Used Second Hand Smoke Exposure: Yes service: Yes Current occupational status: retired Cognitive needs: No Hearing needs: No Vision needs: No Review of Systems Const Denies chills, Denies fatigue, Denies fever(s), Denies frequent falls, Denies weakness, Denies weight gain and Denies weight loss ENT Denies dizziness Card Denies chest pain, Denies leg edema, Denies lightheadedness, Denies palpitations, Denies dyspnea, Denies dyspnea on exertion, Denies orthopnea and Denies other (loss of consciousness) Resp Denies cough, Denies dyspnea and Denies dyspnea on exertion GI Denies hematochezia and Denies change in stool character Musc Denies abnormal gait, Denies muscle weakness, Denies numbness, Denies radiating pain into limb and Denies tingling Neuro Denies abnormal gait, Denies dizziness, Denies frequent falls, Denies numbness, Denies tingling and Denies weakness Endo Denies fatigue and Denies palpitations Physical Exam Vital Signs: Last Vital Signs Pulse 59 02/16/23 10:56 BP 120/70 02/16/23 10:56 BMI result Body Mass Index 22.4 Const General: cooperative, comfortable, no acute distress, alert and awake Nutritional Appearance: average body habitus Orientation/consciousness: patient oriented x3 Limitations: no limitations Neck Neck: Yes trachea midline, Yes supple and Yes no JVD Carotids: no bruits Chest Chest palpation & inspection: other (Well-healed sternotomy scar) Resp Effort & Inspection: normal respiratory effort Auscultation: clear to auscultation bilaterally Cardio Jugular venous distension: no JVD Palpation: normal PMI Rate: regular rate Rhythm: regular rhythm Heart sounds: S1 normal heart sound present, S2 normal heart sound present, no click, no gallops and no murmurs GI Auscultation: normal bowel sounds Skin General skin exam: no rashes or lesions noted and ecchymosis Neuro General: patient oriented x3 and no focal motor deficits Extrem General: Yes no clubbing, cyanosis or edema Psych Appearance: grossly normal Office Procedures EKG Details: EKG shows normal sinus rhythm with inferior Q-waves, unchanged from before [id number], Complete Assessment & Plan Assessment & Plan (1) Coronary artery disease: Comment: S/P CABG x 3 at [facility] on 03/08/2018 S/P cardiac rehab Code(s): I25.10 - Atherosclerotic heart disease of [place] coronary artery without angina pectoris Qualifiers: Associated angina: without angina Coronary Disease-Associated Artery/Lesion type: [place] artery [place] vs. transplanted heart: samish heart Qualified Code(s): I25.10 - Atherosclerotic heart disease of [place] coronary artery without angina pectoris Plan: CAD status post 3 vessel coronary artery bypass grafting 10 years ago with repeats screening stress test showing ischemia in the circumflex RCA territory most likely due to closure of graft to the OM as well as known prior RCA occlusion. He continues to remain highly active and functional with high functional capacity noted on recent Ray protocol. We discussed about management of ischemia which is asymptomatic. Continue aggressive medical therapy including metoprolol. He is currently on dual antiplatelet therapy due to stroke and carotid disease with underlying coronary artery disease. Continue aggressive control blood pressure. LDL is well optimized on high-intensity statin therapy. Advised to call me with any exertional symptoms that may warrant further invasive testing. He understands and agrees. (2) Benign essential hypertension: Code(s): I10 - Essential (primary) hypertension Plan: Hypertension which is currently well optimized on lisinopril and metoprolol therapy advised to monitor blood pressure at home and maintain a log. Goal blood pressure less than 130/84. Advised low-salt diet. Advised to maintain activity level as tolerated. Follow up in the clinic in 1 year's time, sooner p.r.n.. Thank you for allowing me to partake in his care Coding Level of Care Code Est Pt Level 4 (16534) Diagnoses Coronary artery disease involving samish coronary artery of samish heart without angina pectoris I25.10 Associated angina: without angina Coronary Disease-Associated Artery/Lesion type: [place] artery [place] vs. transplanted heart: samish heart Benign essential hypertension I10 CPT Codes EKG - CPT: [id number], Complete ([id number])
== END 2023-02-16 11:14 | disposition home or self-care (01) ==
PROVIDERS: PCP Internal Medicine; Referring Provider Internal Medicine; Visit Provider Internal Medicine Cardiovascular Disease
DX: I25.10 Atherosclerotic heart disease of native coronary artery without angina pectoris (principal); I10 Essential (primary) hypertension
CPT/HCPCS: 93010; 99214

== ENCOUNTER → 2023-02-16 10:51 | Outpatient (BNVA) | payer MEDICARE, SELFPAY | PROVIDERS: PCP Internal Medicine; Referring Provider Internal Medicine; Visit Provider Internal Medicine Cardiovascular Disease | DX: I25.10 Atherosclerotic heart disease of native coronary artery without angina pectoris (principal); I10 Essential (primary) hypertension; Z95.1 Presence of aortocoronary bypass graft; Z79.899 Other long term (current) drug therapy | CPT/HCPCS: 93005; 99212 ==

== ENCOUNTER 2023-07-27 11:58 | Outpatient (REF) | payer MEDICARE, SELFPAY ==
[2023-07-27 13:05] LABS: Imm Gran Abs Auto 0.01 X10*3/uL (0.00-0.03); Imm Gran Pct Auto 0.2 % (0.0-0.4); PLT CLUMP 1; SCAN SMEAR FLAG 1
[2023-07-27 13:07] LABS: Basophils Percent Auto 0.4 % (0-2); Eosinophils Absolute Auto 0.1 X10*3/uL (0.0-0.4); Eosinophils Percent Auto 2.2 % (0-4); Lymphocytes Absolute Auto 1.5 X10*3/uL (1.2-4.9); Mean Corpuscular HGB Conc 33.3 g/dl (31.0-36.0); Mean Corpuscular Volume 92.9 fL (80.0-98.0); Mean Platelet Volume 11.2 fL (9.4-12.4); Monocytes Absolute Auto 0.7 X10*3/uL (0.1-1.2); Neutrophils Absolute Auto 2.2 x10*3/uL (2.0-8.3); Neutrophils Percent Auto 49.2 % (45-73); Red Blood Count 4.52 X10*6/uL (4.60-5.80); Red Cell Distribution Width 12.9 % (11.0-16.0)
[2023-07-27 13:14] LABS: Estimated Average Glucose 117 mg/dL; Hemoglobin A1c % 5.7 % (<6.0)
[2023-07-27 13:23] LABS: Platelet Count 97 X10*3/uL (160-400); White Blood Count 4.5 X10*3/uL (4.8-10.8)
[2023-07-27 13:24] LABS: MANUAL DIFF FLAG NO
[2023-07-27 13:26] LABS: B Type Natriuretic Peptide 67 pg/mL (<100)
[2023-07-27 13:29] LABS: Alanine Aminotransferase 46 U/L (0-40); Albumin Level 4.4 g/dL (3.5-5.0); Alkaline Phosphatase 83 U/L (39-117); Anion Gap 13 (12-20); Aspartate Amino Transferase 42 U/L (5-37); Bilirubin Total 0.5 mg/dL (0.0-1.0); Blood Urea Nitrogen 23 mg/dL (9-16); Calcium 9.4 mg/dL (8.4-10.2); Carbon Dioxide 27 mmol/L (22-29); Chloride 106 mmol/L (96-108); Cholesterol 137 mg/dL (<200); Estimated Glomerular Filt Rate 51; Glucose Fasting 108 mg/dL (60-99); HDL Cholesterol 59 mg/dL (>40); LDL Cholesterol Calculated 62 mg/dL (<100); Potassium 5.6 mmol/L (3.3-5.1); Sodium 140 mmol/L (135-145); Total Protein 7.4 g/dL (6.5-8.0); Triglycerides 82 mg/dL (<150)
[2023-07-27 13:46] LABS: TSH reflex Free T4 1.24 uIU/mL (0.32-4.0); Vitamin D 25-OH Total 38.7 ng/mL (>30)
[2023-07-27 14:30] LABS: Appearance Urine Clear; Color Urine Yellow; Glucose Urine UA Negative (Negative); Leukocyte Esterase Urine Negative (Negative); Nitrite Urine Negative (Negative); PH 5.5 (5.0-9.0); Specific Gravity - Urine 1.015 (1.005-1.025); Urine Blood Negative (Negative); Urine Ketones Negative (Negative); Urine Protein Negative (Neg-Trace)
== END 2023-07-27 11:59 | disposition home or self-care (01) ==
LOC: HO.LAB 11:58
PROVIDERS: Visit Provider Internal Medicine
DX: E78.00 Pure hypercholesterolemia, unspecified (principal); E55.9 Vitamin D deficiency, unspecified; R30.0 Dysuria; R73.01 Impaired fasting glucose; D64.9 Anemia, unspecified; D69.6 Thrombocytopenia, unspecified; I11.0 Hypertensive heart disease with heart failure; I50.9 Heart failure, unspecified
CPT/HCPCS: 36415; 80053; 80061; 81003; 82306; 83036; 83880; 84443; 85025

== ENCOUNTER 2023-08-02 08:42 | Outpatient (AMB) | payer MEDICARE, SELFPAY ==
--- NOTE | 2023-08-02 08:51 | A.OFFPC_ITS ---
Vital Signs 08/02/23 08:53 Height 5 ft 5 in Weight 139 lb 8 oz BMI 23.2 BP 110/68 Blood Pressure Location Lt brachial Position Sitting Pulse 60 Pulse Source Pulse Oximeter Pulse Oximetry (%) 98 Oxygen Delivery Method Room Air Intake Visit Reasons: CAD, hyperlipidemia, HTN, anemia, IFG, BPH Intake Note: Patient is here to follow up on CAD, Hyperlipidemia, HTN, Anemia, IFG, BPH. Router Setter Required: No Supervisor Composing Room: Not Required per policy Accompanied by: Self / Same As Patient Allergies No Known Allergies [No Known Allergies*] Allergy (Verified 08/02/23 09:19) Medication List - Last Reconciled 08/02/23 by Pancho Quiñones MD aspirin 81 mg PO DAILY atorvastatin 80 mg PO DAILY clopidogrel 75 mg PO DAILY lisinopril 5 mg PO DAILY metoprolol succinate ER 25 mg PO DAILY Tobacco use date assessed: 08/02/23 Fall risk assessment: No Falls in past year Last assessed Fall Risk: 08/02/23 Dental Screening Dental Screen Date: 08/02/23 Did you have a dental visit in the last 12 months?: Yes Did you have a dental problem in the last 6 months where you did not have access to dental care?: No Was dental information given to patient?: Patient has dentist HPI CAD, hyperlipidemia, HTN, anemia, IFG, BPH HPI Details Patient comes in today for his follow up visit States that he feels okay He denies any headaches or dizziness Denies any chest pains, no SOB No nausea/vomiting, no abdominal pain No change in bowel habits noted Had his follow up labs done last week - to discuss his results [facility] Medical History Allergic rhinitis Elevated LFTs Thrombocytopenia Anemia Impaired fasting glucose Pure hypercholesterolemia Benign essential hypertension Systolic congestive heart failure Cerebrovascular accident (CVA) Coronary artery disease Surgical History History of coronary artery bypass graft Family History Father No problems noted. Mother No problems noted. Sister In good health Son In good health Daughter In good health Social History Housing: House Alcohol intake: current Alcohol intake frequency: a few times a week Alcohol type: beer Patient Tobacco Use Status: Former Tobacco user e-Cigarette/Vaping Use: Never Used Second Hand Smoke Exposure: Yes service: Yes Current occupational status: retired Cognitive needs: No Hearing needs: No Vision needs: No Questionnaire PHQ-9 Over the last 2 weeks, how often have you been bothered by any of the following problems? 1. Little interest or pleasure in doing things: not at all 2. Feeling down, depressed, or hopeless: not at all 3. Trouble falling or staying asleep, or sleeping too much: not at all 4. Feeling tired or having little energy: not at all 5. Poor appetite or overeating: not at all 6. Feeling bad about yourself - or that you are a failure or have let yourself or your family down: not at all 7. Trouble concentrating on things, such as reading the newspaper or watching television: not at all 8. Moving or speaking so slowly that other people could have noticed. Or the opposite - being so fidgety or restless that you have been moving around a lot more than usual: not at all 9. Thoughts that you would be better off or of hurting yourself in some way: not at all Total score: 0 Depression Screening Interpretation: Negative Depression Screening Done: Yes [id number] - PHQ-9 Billing: Yes Source: Developed by Drs. Romulo Woo, Dolores Correa, Francisco Mendoza and colleagues, with an educational ash from [employer]. Thrive Questionnaire Date Thrive assessed: 08/02/23 I am a: Patient What is your living situation today?: I have a steady place to live Within the past 12 months, did the food you bought not last and you didn't have the money to get more?: Never true Within the past 12 months, did you worry whether your food would run out before you got money to buy more?: Never true Do you have trouble paying for medicines?: No Do you have trouble getting transportation to medical appointments?: No Do you have trouble paying your heating and electricity bill?: No Do you have trouble taking care of your child, family member or friend?: No Do you have trouble with day-to-day activities such as bathing, preparing meals, shopping, managing finances, etc.?: No Are you currently unemployed and looking for a job?: No Are you interested in more education?: No Currently or been in a relationship where the following occur: no concerns reported THRIVE Score: 0 AUDIT C Alcohol Use Questionnaire (AUDIT-C) 1. How often do you have a drink containing alcohol?: 2-3 times a week 2. How many drinks containing alcohol do you have on a typical day when you are drinking?: 1 or 2 Total Score: 3 Score Reviewed/Action Taken: Yes MELANIE-7 AMB Questionnaire MELANIE-7 Date MELANIE - 7 assessed: 08/02/23 Feeling nervous, anxious, or on edge: 0 = Not at all Not being able to stop or control worryin = Not at all Worrying too much about different things: 0 = Not at all Trouble relaxin = Not at all Being so restless that it is hard to sit still: 0 = Not at all Becoming easily annoyed or irritable: 0 = Not at all Feeling afraid as if something awful might happen: 0 = Not at all Total MELANIE-7 score (0-4 normal; 5-9 mild; 10-14 moderate; 15-21 severe): 0 Source: Developed by Drs. Romulo Woo, Dolores Correa, Francisco Mendoza and colleagues, with an educational ash from [employer]. Review of Systems Const Denies chills, Denies fatigue, Denies fever(s) and Denies headache(s) ENT Denies dysphagia, Denies dizziness, Denies otalgia, Denies headache(s), Denies nasal congestion, Denies neck pain, Denies odynophagia and Denies sore throat Card Denies chest pain, Denies palpitations and Denies dyspnea Resp Denies cough and Denies dyspnea GI Denies abdominal pain, Denies constipation, Denies dysphagia, Denies heartburn, Denies diarrhea, Denies nausea, Denies odynophagia and Denies vomiting Denies dysuria, Reports nocturia, Reports urinary frequency and Reports urinary incontinence (occasional urge incontinence) Musc Denies neck pain Skin/Breast Denies rash Neuro Denies dizziness and Denies headache(s) Endo Denies fatigue and Denies palpitations Physical exam (Primary Care) Vital Signs: Last Vital Signs Pulse 60 08/02/23 08:53 BP 110/68 08/02/23 08:53 Pulse Ox 98 08/02/23 08:53 Oxygen Delivery Method Room Air 08/02/23 08:53 BMI result Body Mass Index 23.2 Tobacco/Smoking Status: Tobacco use Status Tobacco use date assessed 08/02/23 08/02/23 08:58 Patient Tobacco Use Status Former Tobacco user 08/02/23 08:58 e-Cigarette/Vaping Use Never Used 08/02/23 08:58 PHQ-9: PHQ-9 Score PHQ-9: Total score 0 08/02/23 08:58 Depression Screening Interpretation: Negative Thrive Assessment: Date of Thrive Assessment Date Thrive assessed 08/02/23 08/02/23 08:58 Currently or been in a relationship where the following occur: no concerns reported Const General: no acute distress and alert HENMT Ears: TM's normal bilaterally and EAC's normal Throat: Yes posterior oropharynx normal and Yes tonsils normal (no TP congestion) Neck Neck: Yes no lymphadenopathy and Yes supple Resp Auscultation: clear to auscultation bilaterally, no rales and no wheezes Cardio Rate: regular rate Rhythm: regular rhythm Heart sounds: no murmurs GI Palpation (GI): Soft to palpation and nontender Auscultation: normal bowel sounds Skin Rashes: no rashes Extrem General: Yes no clubbing, cyanosis or edema Results Reviewed Results Reviewed: Laboratory Tests 07/27/23 07/27/23 07/27/23 12:22 12:22 12:24 WBC 4.5 L Hgb 14.0 Hct 42.0 Plt Count 97 L Sodium 140 Potassium 5.6 H Creatinine 1.35 Estimated GFR 51 Fasting Glucose 108 H Hemoglobin A1c % 5.7 Calcium 9.4 AST 42 H ALT 46 H B-Natriuretic Peptide 67 Triglycerides 82 Cholesterol 137 LDL Cholesterol, Calc 62 HDL Cholesterol 25-OH Vitamin D Total TSH Urine pH 5.5 Ur Specific [place] 1.015 Urine Protein Negative Urine Glucose (UA) Negative Urine Blood Negative Urine Nitrite Negative Ur Leukocyte Esterase Negative 07/27/23 07/27/23 12:24 12:24 WBC Hgb Hct Plt Count Sodium Potassium Creatinine Estimated GFR Fasting Glucose Hemoglobin A1c % Calcium AST ALT B-Natriuretic Peptide Triglycerides Cholesterol LDL Cholesterol, Calc HDL Cholesterol 59 25-OH Vitamin D Total 38.7 TSH 1.24 Urine pH Ur Specific [place] Urine Protein Urine Glucose (UA) Urine Blood Urine Nitrite Ur Leukocyte Esterase Assessment and Plan Assessment & Plan (1) Coronary artery disease: Comment: S/P CABG x 3 at [facility] on 03/08/2018 S/P cardiac rehab Code(s): I25.10 - Atherosclerotic heart disease of [place] coronary artery without angina pectoris Qualifiers: Coronary Disease-Associated Artery/Lesion type: [place] artery [place] vs. transplanted heart: [place] heart Associated angina: without angina Qualified Code(s): I25.10 - Atherosclerotic heart disease of [place] coronary artery without angina pectoris Plan: Patient remains asymptomatic and is quite active with hardly any limitations to his ADLs Continue Clopidogrel 75 mg QD and continue lifelong anticoagulation with low dose Aspirin 81 mg QD Continue Metoprolol ER 25 mg QD Per cardiology, will need to reassess with perfusion imaging studies/stress testing 5 years from his CABG (2022) He had repeat echocardiogram, myocardial perfusion scan and stress testing done back in February 2023 Echo revealed preserved LV systolic function with wall motion abnormality in the RCA territory Myocardial perfusion scan showed (+) moderate-sized mild to moderate intensity basal and mid inferolateral and inferior wall ischemia in RCA/circumflex distribution. Gated LVEF is 54% Stress EKG was negative for ischemia and his exercise time on the treadmill was 8-1/2 minutes on Ray protocol Follow up with cardiology as scheduled - will be seeing cardiology again in 1 year (2) Cerebrovascular accident (CVA): Code(s): I63.9 - Cerebral infarction, unspecified Qualifiers: CVA mechanism: unspecified Qualified Code(s): I63.9 - Cerebral infarction, unspecified Plan: Emphasized again the need to aggressively control his risk factors (BP and cholesterol primarily) to minimize risks of recurrence (3) Systolic congestive heart failure: Comment: EF was at 40% on most recent echocardiogram Code(s): I50.20 - Unspecified systolic (congestive) heart failure Qualifiers: Heart failure chronicity: unspecified Qualified Code(s): I50.20 - Unspecified systolic (congestive) heart failure Plan: Currently compensated with no heart failure symptoms Repeat echocardiogram done in February 2023 revealed preserved LV systolic function with normal LVEF at 55 to 60%, with wall motion abnormality in the RCA territory Follow up with cardiology as scheduled (4) Benign essential hypertension: Code(s): I10 - Essential (primary) hypertension Plan: Reinforced low sodium diet - goal is systolic BP of 120 mm or less Continue Lisinopril 5 mg QD and Metoprolol ER 25 mg QD (5) Pure hypercholesterolemia: Code(s): E78.00 - Pure hypercholesterolemia, unspecified Plan: Results of his labs done last week reviewed and discussed with patient Reinforced low cholesterol diet Continue Atorvastatin 80 mg QD Will recheck his labs and fasting lipids in 6 months for follow up (6) Impaired fasting glucose: Code(s): R73.01 - Impaired fasting glucose Plan: HgbA1c was at 5.7% on his labs done last week; was at 5.8% previously Reinforced low calorie diet/exercise as tolerated (7) Anemia: Code(s): D64.9 - Anemia, unspecified Qualifiers: Anemia type: unspecified type Qualified Code(s): D64.9 - Anemia, unspecified Plan: Stable - will continue to monitor his CBC regularly (8) Thrombocytopenia: Code(s): D69.6 - Thrombocytopenia, unspecified Plan: Mild/stable, with no acute bleeding - most likely due to current antiplatelet Tx Will continue to monitor his platelet counts regularly (9) Elevated LFTs: Code(s): R79.89 - Other specified abnormal findings of blood chemistry Plan: His LFTs have decreased again slightly from previous on his recent labs but remains elevated Reinforced avoidance of high-dose Acetaminophen Rx; patient states that he does not drink alcohol Will continue to monitor his LFTs regularly (10) Allergic rhinitis: Code(s): J30.9 - Allergic rhinitis, unspecified Qualifiers: Allergic rhinitis trigger: unspecified Allergic rhinitis seasonality: unspecified Qualified Code(s): J30.9 - Allergic rhinitis, unspecified Plan: Continue OTC Loratadine 10 mg QD PRN (11) Urinary frequency: Code(s): R35.0 - Frequency of micturition Plan: Most likely due to BPH He was started on Finasteride 5 mg QD by urology previously but patient stopped taking this a few months ago as he felt that the medication was not doing anything States that he has not had any problems since he stopped taking the medication Follow up with urology as scheduled Plan Follow up in 6 months Orders: Orders Lipid Panel 6 Months E78.00 - Pure hypercholesterolemia, unspecified Comprehensive [place]. Panel Fast 6 Months E78.00 - Pure hypercholesterolemia, unspecified Complete Blood Count Auto Diff 6 Months D64.9 - Anemia, unspecified Magnesium 6 Months E83.42 - Hypomagnesemia UA CC w/rflx Micro + Cult 6 Months R30.0 - Dysuria B Type Natriuretic Peptide 6 Months I50.9 - Heart failure, unspecified Hemoglobin A1c 6 Months R73.01 - Impaired fasting glucose Platelet Count (Citrate) 6 Months D69.1 - Qualitative platelet defects, D69.6 - Thrombocytopenia, unspecified Coding Level of Care Code Est Pt Level 4 (89352) Diagnoses Coronary artery disease involving [place] coronary artery of [place] heart without angina pectoris I25.10 Coronary Disease-Associated Artery/Lesion type: [place] artery [place] vs. transplanted heart: [place] heart Associated angina: without angina Cerebrovascular accident (CVA), unspecified mechanism I63.9 CVA mechanism: unspecified Systolic congestive heart failure, unspecified HF chronicity I50.20 Heart failure chronicity: unspecified Benign essential hypertension I10 Pure hypercholesterolemia E78.00 Impaired fasting glucose R73.01 Anemia, unspecified type D64.9 Anemia type: unspecified type Thrombocytopenia D69.6 Elevated LFTs R79.89 Allergic rhinitis, unspecified seasonality, unspecified trigger J30.9 Allergic rhinitis trigger: unspecified Allergic rhinitis seasonality: unspecified Urinary frequency R35.0
[2023-08-02 08:53] VITALS: BP 110/68; PULSE 60; O2SAT 98; BMI 23.2
== END 2023-08-02 09:28 | disposition home or self-care (01) ==
PROVIDERS: PCP Internal Medicine; Visit Provider Internal Medicine
DX: I25.10 Atherosclerotic heart disease of native coronary artery without angina pectoris (principal); I11.0 Hypertensive heart disease with heart failure; I50.20 Unspecified systolic (congestive) heart failure; E78.00 Pure hypercholesterolemia, unspecified; R73.01 Impaired fasting glucose; D64.9 Anemia, unspecified; R79.89 Other specified abnormal findings of blood chemistry; J30.9 Allergic rhinitis, unspecified; R35.0 Frequency of micturition
CPT/HCPCS: 99214

== ENCOUNTER → 2024-02-01 09:27 | Outpatient (REF) | payer MEDICARE, SELFPAY ==
--- NOTE | 2024-02-01 09:33 | CA_ITS ---
Transthoracic Echocardiogram Patient (Last, First, Middle): Steven Simms P Gender: Male Date of : 1940 Age: 83 Procedure Date: 02/01/2024 Procedure Type: Transthoracic Echocardiogram Location: OP Height: 167.64 cm Weight: 64.86 kg BSA: 1.73 m2 Heart Rate: bpm BP: 140 / 60 mmHg Feeder Switchboard Operator: KENZIE Referring MD: Alfredo Herrera MD Charge Master Specialist: Alfredo Herrera MD Symptoms: I25.10 - Atherosclerotic heart disease of [place] coronary artery without... Study Quality: Fair ECG Rhythm: Sinus Conclusions: - 1. Low normal LV ejection fraction 50-55% with impaired relaxation filling pattern with underlying regional wall motion abnormality consistent with coronary artery disease 2. Early mild aortic stenosis with trivial aortic regurgitation 3. Upper limits of normal RV systolic pressure 4. No gross pericardial effusion Findings Left Ventricle Normal left ventricular cavity size. There is mildly increased left ventricular wall thickness. The left ventricular systolic function is low normal. The visually estimated ejection fraction is between 50-55%. Spectral Doppler is indicative of an impaired relaxation filling pattern. E/E prime ratio is between 8 and 15 consistent with indeterminate filling pressures. Wall Motion Rest Echo Findings The inferoseptal wall and mid inferior segment are hypokinetic. The basal inferior segment is akinetic. All other scored wall segments showed normal motion. Right Ventricle Normal right ventricular cavity size and systolic function. Atria The left atrium is likely dilated. There is no evidence of interatrial shunt. The right atrium is normal in size. Aortic Valve There is mild calcification of the aortic valve. There is mild thickening of the aortic valve. There is mild aortic valve stenosis. The peak aortic velocity is 1.67 m/s with a calculated peak gradient of 11 mmHg. The mean gradient is 5 mmHg. The aortic valve area is 1.91 cm2. There is trace (trivial) aortic valve regurgitation. Mitral Valve There is mild anterior and posterior mitral leaflet thickening. There is mild mitral annular calcification. There is trace mitral valve regurgitation. There is no mitral valve stenosis. Pulmonic Valve The pulmonic valve is likely normal. Tricuspid Valve Likely normal tricuspid valve structure and function. There is mild tricuspid valve regurgitation. The right ventricular systolic pressure is normal. Normal right atrial pressure. There is no evidence of pulmonary hypertension. Great Vessels All visible segments of the aorta are normal in size. The pulmonary artery was not well visualized. There is no dilatation of the ascending aorta measuring 3.20 cm. Venous The inferior vena cava is normal in size and collapses greater than 50% with inspiration. Pericardium/Pleural There is no evidence of pericardial effusion. Prior Study Comparison Changes noted compared to prior study dated: 02/11/2023. LV systolic function is reduced marginally. Early mild aortic stenosis is present Measurements 2D Linear Measurements IVSd: 1.37 0.6-0.9/0.6-1.0 cm LVIDd: 4.02 3.9-5.3/4.2-5.9 cm LVIDd Index: 2.32 2.4-3.2/2.2-3.1 cm/m2 LVIDs: 2.55 2.0-3.6 cm LVPWd: 1.12 0.7-1.1 cm LA Diam: 4.00 2.7-3.8/3.0-4.0 cm LAIDs Index: 2.31 1.5-2.3 cm/m2 LV Mass: 219.37 67-162/88-224 g LV Mass Index: 126.80 43-95/49-115 g/m2 LVOT Diam: 2.00 3.0+(-)1.3 cm 2D Systolic Function EF 4C: 54.30 >55% EF 2C: 52.10 >55% EF BiP: 52.40 >55% Mitral Valve MV Pk E: 0.87 MV PK A: 1.08 MV Decel Time: 234.00 E/A: 0.80 E'Lateral: 8.81 E'Medial: 3.05 E/E' Med: 28.40 E/E' Lat: 9.80 PHT: 68.00 MVA PHT: 3.24 Decel Menard: 3.70 Aortic Valve AoV Pk Clarke: 1.67 AoV Mn Clarke: 1.04 AoV VTI: 0.42 AoV Pk Grad: 11.00 Aov Mn Grad: 5.00 MIKEL Cont.VTI: 1.91 LVOT LVOT Pk Clarke: 0.98 LVOT Mn Clarke: 0.65 LVOT VTI: 0.26 LVOT Pk Grad: 4.00 LVOT Mn Grad: 2.00 LVOT Diam: 2.00 LVOT Area: 3.14 Diastolic Function MV Pk E: 0.87 MV Pk A: 1.08 E/A: 0.80 E'Medial: 3.05 E/E' Med: 28.40 E' Laterial: 8.81 E/E' Lat: 9.80 Right Ventricle TAPSE (mm): 16.90 TVS' Clarke: 10.10 Tricuspid Valve TR Pk Clarke: 2.95 TR Pk Grad: 35.00 RA Press: 3.00 RVSP: 38.00 Great Vessels Aorta Sinus of Valsalva: 2.89 2.0-3.[address] [place]: 2.46 1.7-3.4 cm Ao Asc: 3.20 2.1-3.4 cm Updated in Other Vendor System with Status of Final Alfredo Herrera MD electronically signed on 02/01/2024 11:27:44 AM with status of Final
== END ==
LOC: HO.CARD 09:27
PROVIDERS: PCP Internal Medicine; Visit Provider Internal Medicine Cardiovascular Disease
DX: I25.10 Atherosclerotic heart disease of native coronary artery without angina pectoris (principal)
CPT/HCPCS: 93306

== ENCOUNTER → 2024-02-01 09:33 | Outpatient (BNV) | payer MEDICARE, SELFPAY | PROVIDERS: PCP Internal Medicine; Visit Provider Internal Medicine Cardiovascular Disease | DX: I35.2 Nonrheumatic aortic (valve) stenosis with insufficiency (principal); I34.81 Nonrheumatic mitral (valve) annulus calcification; I36.1 Nonrheumatic tricuspid (valve) insufficiency | CPT/HCPCS: 93306 ==

== ENCOUNTER 2024-02-15 10:45 | Outpatient (AMB) | payer MEDICARE, SELFPAY ==
--- NOTE | 2024-02-15 11:00 | A.OFFVIS_ITS ---
Vital Signs 02/15/24 11:05 Height 5 ft 5 in Weight 134 lb 7.712 oz BMI 22.4 BP 120/68 Blood Pressure Location Lt brachial Position Sitting Pulse 64 Intake Visit Reasons: 1 yr f/up Intake Note: 1 year follow-up with ekg feeling good Log Getter Required: No Speech Therapist Early Intervention: Speech Therapist Early Intervention Present Accompanied by: Spouse Allergies No Known Allergies [No Known Allergies*] Allergy (Verified 08/02/23 09:19) Medication List - Last Reconciled 02/15/24 by Alfredo Herrera MD aspirin 81 mg PO DAILY atorvastatin 80 mg PO DAILY clopidogrel 75 mg PO DAILY lisinopril 5 mg PO DAILY metoprolol succinate ER 25 mg PO DAILY HPI Comments Details: Steven comes for follow-up. Tenuous remain very active. He walks 3 miles up and down hills without any issues or exertional chest pain or shortness of breath. No symptoms of fatigue. Denies any heart failure symptoms. Takes all his medications. Denies any prolonged palpitation irregular heartbeat. No lightheadedness, syncope. [facility] Medical History Allergic rhinitis Elevated LFTs Thrombocytopenia Anemia Impaired fasting glucose Pure hypercholesterolemia Benign essential hypertension Systolic congestive heart failure Cerebrovascular accident (CVA) Coronary artery disease Surgical History History of coronary artery bypass graft Family History Father No problems noted. Mother No problems noted. Sister In good health Son In good health Daughter In good health Social History Housing: House Alcohol intake: current Alcohol intake frequency: a few times a week Alcohol type: beer Patient Tobacco Use Status: Former Tobacco user e-Cigarette/Vaping Use: Never Used Second Hand Smoke Exposure: Yes service: Yes Current occupational status: retired Cognitive needs: No Hearing needs: No Vision needs: No Review of Systems Const Denies chills, Denies fatigue, Denies fever(s), Denies frequent falls, Denies weakness, Denies weight gain and Denies weight loss ENT Denies dizziness Card Denies chest pain, Denies leg edema, Denies lightheadedness, Denies palpitations, Denies dyspnea, Denies dyspnea on exertion, Denies orthopnea and Denies other (loss of consciousness) Resp Denies cough, Denies dyspnea and Denies dyspnea on exertion GI Denies hematochezia and Denies change in stool character Musc Denies abnormal gait, Denies muscle weakness, Denies numbness, Denies radiating pain into limb and Denies tingling Neuro Denies abnormal gait, Denies dizziness, Denies frequent falls, Denies numbness, Denies tingling and Denies weakness Endo Denies fatigue and Denies palpitations Physical Exam Vital Signs: Last Vital Signs Pulse 64 02/15/24 11:05 BP 120/68 02/15/24 11:05 BMI result Body Mass Index 22.4 Const General: cooperative, comfortable, no acute distress, alert and awake Nutritional Appearance: average body habitus Orientation/consciousness: patient oriented x3 Limitations: no limitations Neck Neck: Yes trachea midline, Yes supple and Yes no JVD Carotids: no bruits Chest Chest palpation & inspection: other (Well-healed sternotomy scar) Resp Effort & Inspection: normal respiratory effort Auscultation: clear to auscultation bilaterally Cardio Jugular venous distension: no JVD Palpation: normal PMI Rate: regular rate Rhythm: regular rhythm Heart sounds: S1 normal heart sound present, S2 normal heart sound present, no click, no gallops and Murmur heart sound present systolic early GI Auscultation: normal bowel sounds Skin General skin exam: no rashes or lesions noted and ecchymosis Neuro General: patient oriented x3 and no focal motor deficits Extrem General: Yes no clubbing, cyanosis or edema Psych Appearance: grossly normal Office Procedures EKG Details: EKG shows normal sinus rhythm with PVCs with inferior Q-waves [id number], Complete Assessment & Plan Assessment & Plan (1) Coronary artery disease: Comment: S/P CABG x 3 at [facility] on 03/08/2018 S/P cardiac rehab Code(s): I25.10 - Atherosclerotic heart disease of [place] coronary artery without angina pectoris Category: Medical Qualifiers: Coronary Disease-Associated Artery/Lesion type: [place] artery [place] vs. transplanted heart: [place] heart Associated angina: without angina Qualified Code(s): I25.10 - Atherosclerotic heart disease of [place] coronary artery without angina pectoris Plan: Coronary artery disease status post coronary artery bypass grafting 2018 with abnormal stress test last year without any obvious symptoms of angina with good functional capacity at this point time. Continue aggressive medical management. Currently on dual antiplatelet therapy due to prior history of CVA continue the same. Blood pressure is well optimized on lisinopril and metoprolol therapy. Continue the same. See below. Continue high-intensity statin therapy. Target goal LDL closer to 60 mg/dL. Advise at least annual lipid panel. Advised to continue maintain activity level as tolerated without over exerting. Advised to call with any worsening symptoms. (2) Benign essential hypertension: Code(s): I10 - Essential (primary) hypertension Category: Medical Plan: Hypertension which is currently well optimized advised to monitor blood pressure at home maintain a log. Goal blood pressure less than 130/84. Low-salt diet was discussed. He understands agrees. Will follow up in the clinic in 1 year's time, sooner p.r.n.. Thank you for allowing me to partake in his care Coding Level of Care Code Est Pt Level 4 (17680) Diagnoses Coronary artery disease involving [place] coronary artery of [place] heart without angina pectoris I25.10 Coronary Disease-Associated Artery/Lesion type: [place] artery [place] vs. transplanted heart: [place] heart Associated angina: without angina Benign essential hypertension I10 CPT Codes EKG - CPT: 35988-[id number], Complete ([id number])
[2024-02-15 11:05] VITALS: BP 120/68; PULSE 64; BMI 22.4
== END 2024-02-15 11:31 | disposition home or self-care (01) ==
PROVIDERS: PCP Internal Medicine; Visit Provider Internal Medicine Cardiovascular Disease
DX: I25.10 Atherosclerotic heart disease of native coronary artery without angina pectoris (principal); I10 Essential (primary) hypertension
CPT/HCPCS: 93010; 99214

== ENCOUNTER → 2024-02-15 10:45 | Outpatient (BNVA) | payer MEDICARE, SELFPAY | PROVIDERS: PCP Internal Medicine; Visit Provider Internal Medicine Cardiovascular Disease | DX: I25.10 Atherosclerotic heart disease of native coronary artery without angina pectoris (principal); I10 Essential (primary) hypertension | CPT/HCPCS: 93005; 99212 ==

== ENCOUNTER 2024-04-20 10:23 | Outpatient (REF) | payer MEDICARE, SELFPAY ==
[2024-04-20 10:55] LABS: MANUAL DIFF FLAG NO
[2024-04-20 11:51] LABS: Basophils Absolute Auto 0.1 X10*3/uL (0.0-0.2); Basophils Percent Auto 0.9 % (0-2); Eosinophils Absolute Auto 0.3 X10*3/uL (0.0-0.4); Eosinophils Percent Auto 4.7 % (0-4); Hematocrit 41.3 % (42.0-52.0); Hemoglobin 14.1 g/dl (14.0-18.0); Imm Gran Abs Auto 0.03 X10*3/uL (0.00-0.03); Imm Gran Pct Auto 0.5 % (0.0-0.4); Lymphocytes Absolute Auto 1.3 X10*3/uL (1.2-4.9); Lymphocytes Percent Auto 23.5 % (20-40); Mean Corpuscular HGB Conc 34.1 g/dl (31.0-36.0); Mean Corpuscular Hemoglobin 31.8 pg (27.0-33.0); Mean Corpuscular Volume 93.2 fL (80.0-98.0); Mean Platelet Volume 10.8 fL (9.4-12.4); Monocytes Absolute Auto 0.6 X10*3/uL (0.1-1.2); Monocytes Percent Auto 9.6 % (2-11); Neutrophils Absolute Auto 3.5 x10*3/uL (2.0-8.3); Neutrophils Percent Auto 60.8 % (45-73); Platelet Count 128 X10*3/uL (160-400); Red Blood Count 4.43 X10*6/uL (4.60-5.80); Red Cell Distribution Width 12.1 % (11.0-16.0); White Blood Count 5.7 X10*3/uL (4.8-10.8)
[2024-04-20 11:54] LABS: Platelet Count (Citrate) 103 X10*3/uL (150-310)
[2024-04-20 11:55] LABS: Appearance Urine Clear; Color Urine Yellow; Glucose Urine UA Negative (Negative); Leukocyte Esterase Urine Negative (Negative); Nitrite Urine Negative (Negative); Urine Blood Negative (Negative); Urine Ketones Negative (Negative); Urine Protein Negative (Neg-Trace)
[2024-04-20 11:55] LABS: Alanine Aminotransferase 34 U/L (0-40); Albumin Level 4.4 g/dL (3.5-5.0); Alkaline Phosphatase 67 U/L (39-117); Anion Gap 9 (12-20); Aspartate Amino Transferase 34 U/L (5-37); B Type Natriuretic Peptide 125 pg/mL (<100); Bilirubin Total 0.7 mg/dL (0.0-1.0); Blood Urea Nitrogen 22 mg/dL (9-16); Calcium 9.6 mg/dL (8.4-10.2); Carbon Dioxide 31 mmol/L (22-29); Chloride 104 mmol/L (96-108); Cholesterol 135 mg/dL (<200); Estimated Glomerular Filt Rate 53; Glucose Fasting 112 mg/dL (60-99); HDL Cholesterol 70 mg/dL (>40); LDL Cholesterol Calculated 47 mg/dL (<100); Magnesium 2.1 mg/dL (1.6-2.6); Potassium 4.6 mmol/L (3.3-5.1); Sodium 139 mmol/L (135-145); Triglycerides 91 mg/dL (<150)
[2024-04-20 14:14] LABS: Estimated Average Glucose 120 mg/dL; Hemoglobin A1C 145.5362 umol/L; Hemoglobin A1c % 5.8 % (<6.0); Total Hemoglobin (HGBA1C) 3603.3754 umol/L
== END 2024-04-20 10:24 | disposition home or self-care (01) ==
LOC: HO.LAB 10:23
PROVIDERS: PCP Internal Medicine; Visit Provider Internal Medicine
DX: I50.9 Heart failure, unspecified (principal); E78.00 Pure hypercholesterolemia, unspecified; D64.9 Anemia, unspecified; E83.42 Hypomagnesemia; R30.0 Dysuria; R73.01 Impaired fasting glucose; D69.1 Qualitative platelet defects; D69.6 Thrombocytopenia, unspecified
CPT/HCPCS: 36415; 80053; 80061; 81003; 83036; 83735; 83880; 85025

== ENCOUNTER 2024-04-28 16:48 | Outpatient (AMB) | payer MEDICARE, SELFPAY ==
--- NOTE | 2024-04-28 16:58 | A.OFFPC_ITS ---
Vital Signs 04/28/24 16:59 Height 5 ft 5 in Weight 139 lb BMI 23.1 BP 128/56 L Blood Pressure Location Lt brachial Position Sitting Pulse 55 Pulse Source Pulse Oximeter Pulse Oximetry (%) 99 Oxygen Delivery Method Room Air Intake Visit Reasons: 6 month f/u Research Associate Policy Required: No Accompanied by: Spouse Allergies No Known Allergies [No Known Allergies*] Allergy (Verified 04/28/24 17:01) Medication List - Last Reconciled 04/28/24 by Pancho Quiñones MD aspirin 81 mg PO DAILY atorvastatin 80 mg PO DAILY clopidogrel 75 mg PO DAILY lisinopril 5 mg PO DAILY metoprolol succinate ER 25 mg PO DAILY Tobacco use date assessed: 08/02/23 Fall risk assessment: No Falls in past year Last assessed Fall Risk: 04/28/24 Dental Screening Dental Screen Date: 08/02/23 HPI 6 month f/u HPI Details Patient comes in today for his follow up visit States that he feels okay He denies any headaches or dizziness Denies any exertional chest pains or increased SOB - states that he tries to stay active and has no significant limitations in terms of his daily activities No nausea/vomiting, no abdominal pain No change in bowel habits noted He had his follow up labs done last week - to discuss his results [facility] Medical History (Updated 04/28/24 @ 18:21 by Pancho Quiñones MD) Systolic congestive heart failure Allergic rhinitis Elevated LFTs Thrombocytopenia Anemia Impaired fasting glucose Pure hypercholesterolemia Benign essential hypertension Cerebrovascular accident (CVA) Coronary artery disease Surgical History History of coronary artery bypass graft Family History Father No problems noted. Mother No problems noted. Sister In good health Son In good health Daughter In good health Social History Housing: House Alcohol intake: current Alcohol intake frequency: a few times a week Alcohol type: beer Patient Tobacco Use Status: Former Tobacco user e-Cigarette/Vaping Use: Never Used Second Hand Smoke Exposure: Yes service: Yes Current occupational status: retired Cognitive needs: No Hearing needs: No Vision needs: No Questionnaire Thrive Questionnaire Date Thrive assessed: 08/02/23 MELANIE-7 AMB Questionnaire MELANIE-7 Date MELANIE - 7 assessed: 08/02/23 Source: Developed by Drs. Romulo Woo, Dolores Correa, Francisco Mendoza and colleagues, with an educational ash from [employer]. Review of Systems Const Denies chills, Denies fatigue, Denies fever(s) and Denies headache(s) ENT Denies dysphagia, Denies dizziness, Denies otalgia, Denies headache(s), Denies nasal congestion, Denies neck pain, Denies odynophagia and Denies sore throat Card Denies chest pain, Denies palpitations and Denies dyspnea Resp Denies chest congestion, Denies cough and Denies dyspnea GI Denies abdominal pain, Denies constipation, Denies dysphagia, Denies heartburn, Denies diarrhea, Denies nausea, Denies odynophagia and Denies vomiting Denies dysuria, Reports nocturia, Reports urinary frequency and Reports urinary incontinence (occasional urge incontinence) Musc Denies back pain and Denies neck pain Skin/Breast Denies rash Neuro Denies dizziness and Denies headache(s) Endo Denies fatigue and Denies palpitations Physical exam (Primary Care) Vital Signs: Last Vital Signs Pulse 55 04/28/24 16:59 BP 128/56 L 04/28/24 16:59 Pulse Ox 99 04/28/24 16:59 Oxygen Delivery Method Room Air 04/28/24 16:59 BMI result Body Mass Index 23.1 Tobacco/Smoking Status: Tobacco use Status Tobacco use date assessed 08/02/23 04/28/24 16:58 Patient Tobacco Use Status Former Tobacco user 04/28/24 16:58 e-Cigarette/Vaping Use Never Used 04/28/24 16:58 Thrive Assessment: Date of Thrive Assessment Date Thrive assessed 08/02/23 04/28/24 16:58 Const General: no acute distress and alert HENMT Ears: TM's normal bilaterally and EAC's normal Throat: Yes posterior oropharynx normal and Yes tonsils normal (no TP congestion) Neck Neck: Yes no lymphadenopathy and Yes supple Resp Auscultation: clear to auscultation bilaterally, no rales and no wheezes Cardio Rate: regular rate Rhythm: regular rhythm Heart sounds: no murmurs GI Palpation (GI): Soft to palpation and nontender Auscultation: normal bowel sounds General: Yes no CVA tenderness Back/Spine/Pelvis Back: no CVA tenderness Thoracic/Lumbar Spine: No lumbar spinal tenderness Skin Rashes: no rashes Extrem General: Yes no clubbing, cyanosis or edema Office Procedures Flu Questionnaire Does the patient have a severe egg allergy?: No Immunizations Fluarix Triv [id number] (PF) 45 mcg (15 mcg x 3)/0.5 mL IM syringe Performing Provider: Pancho Quiñones MD [facility] [place] [facility] Documented (not given) by: ROGER Briceño on 04/28/24 16:59 Reason Not Given: Patient Refused Results Reviewed Results Reviewed: Laboratory Tests 04/20/24 04/20/24 10:53 10:54 WBC 5.7 Hgb 14.1 Hct 41.3 L Plt Count 128 L D Sodium 139 Potassium 4.6 Creatinine 1.30 Estimated GFR 53 Fasting Glucose 112 H Hemoglobin A1c % 5.8 Calcium 9.6 Magnesium 2.1 AST 34 ALT 34 B-Natriuretic Peptide 125 H Triglycerides 91 Cholesterol 135 LDL Cholesterol, Calc 47 HDL Cholesterol 70 Ur Specific [place] 1.010 Urine Protein Negative Urine Glucose (UA) Negative Urine Blood Negative Urine Nitrite Negative Ur Leukocyte Esterase Negative Coding Level of Care Code Est Pt Level 4 (41688) Diagnoses Coronary artery disease involving [place] coronary artery of [place] heart without angina pectoris I25.10 Coronary Disease-Associated Artery/Lesion type: [place] artery [place] vs. transplanted heart: [place] heart Associated angina: without angina Cerebrovascular accident (CVA), unspecified mechanism I63.9 CVA mechanism: unspecified Systolic congestive heart failure, unspecified HF chronicity I50.20 Heart failure chronicity: unspecified Pure hypercholesterolemia E78.00 Benign essential hypertension I10 Impaired fasting glucose R73.01 Anemia, unspecified type D64.9 Anemia type: unspecified type Thrombocytopenia D69.6 Elevated LFTs R79.89 Allergic rhinitis, unspecified seasonality, unspecified trigger J30.9 Allergic rhinitis trigger: unspecified Allergic rhinitis seasonality: unspecified Benign prostatic hyperplasia with urinary frequency N40.1; R35.0 Assessment & Plan Assessment & Plan (1) Coronary artery disease: Comment: S/P CABG x 3 at [facility] on 03/08/2018 S/P cardiac rehab Code(s): I25.10 - Atherosclerotic heart disease of [place] coronary artery without angina pectoris Category: Medical Qualifiers: Coronary Disease-Associated Artery/Lesion type: [place] artery [place] vs. transplanted heart: [place] heart Associated angina: without angina Qualified Code(s): I25.10 - Atherosclerotic heart disease of [place] coronary artery without angina pectoris Plan: Patient remains asymptomatic and is very active with hardly any limitations to his daily ADLs Continue Clopidogrel 75 mg QD and continue lifelong anticoagulation with low dose Aspirin 81 mg QD Continue Metoprolol ER 25 mg QD He had repeat echocardiogram, myocardial perfusion scan and stress testing done back in February 2023 Echo revealed preserved LV systolic function with wall motion abnormality in the RCA territory Myocardial perfusion scan showed (+) moderate-sized mild to moderate intensity basal and mid inferolateral and inferior wall ischemia in RCA/circumflex distribution. Gated LVEF is 54% Stress EKG was negative for ischemia and his exercise time on the treadmill was 8-1/2 minutes on Ray protocol He is advised to continue with aggressive risk factor modification Follow up with cardiology as scheduled - will be seeing cardiology again in 1 year (2) Cerebrovascular accident (CVA): Code(s): I63.9 - Cerebral infarction, unspecified Category: Medical Qualifiers: CVA mechanism: unspecified Qualified Code(s): I63.9 - Cerebral infarction, unspecified Plan: Have emphasized again to patient the need to aggressively control his risk factors (BP and cholesterol primarily) to minimize risks of recurrence (3) Systolic congestive heart failure: Comment: EF was at 40% on most recent echocardiogram Code(s): I50.20 - Unspecified systolic (congestive) heart failure Category: Medical Qualifiers: Heart failure chronicity: unspecified Qualified Code(s): I50.20 - Unspecified systolic (congestive) heart failure Plan: He is currently compensated with no heart failure symptoms Repeat echocardiogram done in February 2023 revealed preserved LV systolic function with normal LVEF at 55 to 60%, with wall motion abnormality in the RCA territory Follow up with cardiology as scheduled (4) Pure hypercholesterolemia: Code(s): E78.00 - Pure hypercholesterolemia, unspecified Category: Medical Plan: Results of his labs done last week reviewed and discussed with patient Reinforced low cholesterol diet Continue Atorvastatin 80 mg QD Will recheck his labs and fasting lipids in 6 months for follow up (5) Benign essential hypertension: Code(s): I10 - Essential (primary) hypertension Category: Medical Plan: Reinforced low sodium diet - goal is systolic BP of 120 mm or less Continue Lisinopril 5 mg QD and Metoprolol ER 25 mg QD (6) Impaired fasting glucose: Code(s): R73.01 - Impaired fasting glucose Category: Medical Plan: HgbA1c was at 5.8% on his labs done last week; was previously at 5.7% a few months ago Reinforced low calorie diet/exercise as tolerated (7) Anemia: Code(s): D64.9 - Anemia, unspecified Category: Medical Qualifiers: Anemia type: unspecified type Qualified Code(s): D64.9 - Anemia, unspecified Plan: Improved/corrected Will continue to monitor his CBC regularly (8) Thrombocytopenia: Code(s): D69.6 - Thrombocytopenia, unspecified Category: Medical Plan: Mild/stable, with no acute bleeding - most likely due to current antiplatelet Tx Will continue to monitor his platelet count regularly (9) Elevated LFTs: Code(s): R79.89 - Other specified abnormal findings of blood chemistry Category: Medical Plan: Improved - his LFTs are now normal on his recent labs Reinforced avoidance of high-dose Acetaminophen Rx; patient states that he does not drink alcohol Will continue to monitor his LFTs regularly (10) Allergic rhinitis: Code(s): J30.9 - Allergic rhinitis, unspecified Category: Medical Qualifiers: Allergic rhinitis trigger: unspecified Allergic rhinitis seasonality: unspecified Qualified Code(s): J30.9 - Allergic rhinitis, unspecified Plan: Continue OTC Loratadine 10 mg QD PRN (11) Benign prostatic hyperplasia with urinary frequency: Code(s): N40.1 - Benign prostatic hyperplasia with lower urinary tract symptoms; R35.0 - Frequency of micturition Category: Medical Plan: He was started on Finasteride 5 mg QD by urology previously but patient stopped taking this a while back as he felt that the medication was not helping States that he has not had any problems since he stopped taking the medication Follow up with urology as scheduled Plan Follow up in 6 months Orders: Orders Influenza [id number] Immunization Today Z23 - Encounter for immunization Comprehensive [place]. Panel Fast 6 Months E78.00 - Pure hypercholesterolemia, unspecified TSH reflex Free T4 6 Months E78.00 - Pure hypercholesterolemia, unspecified Vitamin D 25-OH Total 6 Months E55.9 - Vitamin D deficiency, unspecified Complete Blood Count Auto Diff 6 Months D64.9 - Anemia, unspecified Lipid Panel 6 Months E78.00 - Pure hypercholesterolemia, unspecified Hemoglobin A1c 6 Months R73.01 - Impaired fasting glucose UA CC w/rflx Micro + Cult 6 Months R30.0 - Dysuria
[2024-04-28 16:59] VITALS: BP 128/56; PULSE 55; O2SAT 99; BMI 23.1
== END 2024-04-28 17:16 | disposition home or self-care (01) ==
PROVIDERS: PCP Internal Medicine; Visit Provider Internal Medicine
DX: I25.10 Atherosclerotic heart disease of native coronary artery without angina pectoris (principal); Z86.73 Personal history of transient ischemic attack (TIA), and cerebral infarction without residual deficits; I50.20 Unspecified systolic (congestive) heart failure; D69.6 Thrombocytopenia, unspecified; E78.00 Pure hypercholesterolemia, unspecified; I10 Essential (primary) hypertension; R73.01 Impaired fasting glucose; D64.9 Anemia, unspecified; J30.9 Allergic rhinitis, unspecified; N40.1 Benign prostatic hyperplasia with lower urinary tract symptoms; R35.0 Frequency of micturition

== ENCOUNTER → 2024-04-28 16:48 | Outpatient (BNVA) | payer MEDICARE, SELFPAY | PROVIDERS: PCP Internal Medicine; Visit Provider Internal Medicine | DX: I25.10 Atherosclerotic heart disease of native coronary artery without angina pectoris (principal); I63.9 Cerebral infarction, unspecified; E78.00 Pure hypercholesterolemia, unspecified; I10 Essential (primary) hypertension; R73.01 Impaired fasting glucose; D64.9 Anemia, unspecified; D69.6 Thrombocytopenia, unspecified; R79.89 Other specified abnormal findings of blood chemistry; J30.9 Allergic rhinitis, unspecified; N40.1 Benign prostatic hyperplasia with lower urinary tract symptoms; R35.0 Frequency of micturition | CPT/HCPCS: 99212 ==

== ENCOUNTER 2024-10-16 11:01 | Outpatient (REF) | payer MEDICARE, SELFPAY ==
[2024-10-16 11:57] LABS: Appearance Urine Clear; Color Urine Yellow; Glucose Urine UA Negative (Negative); Leukocyte Esterase Urine Negative (Negative); Nitrite Urine Negative (Negative); UMIC TRIGGER UACC YES; Urine Blood Trace (Negative); Urine Ketones Negative (Negative); Urine Protein Negative (Neg-Trace)
[2024-10-16 12:03] LABS: Estimated Average Glucose 126 mg/dL; Hemoglobin A1C 144.2933 umol/L; Total Hemoglobin (HGBA1C) 3451.5336 umol/L
[2024-10-16 12:03] LABS: Bacteria Urine None Seen (None Seen); Hyaline Casts Urine 0-2 /LPF (0-2); RBC Urine 0-2 /HPF (0-2); Squamous Epithelial Cell Urine 0-2 /HPF (0-2); WBC Urine 0-5 /HPF (0-5)
[2024-10-16 13:31] LABS: TSH reflex Free T4 1.74 uIU/mL (0.32-4.0); Vitamin D 25-OH Total 35.7 ng/mL (>30)
[2024-10-16 13:41] LABS: Alanine Aminotransferase 35 U/L (0-40); Albumin Level 4.4 g/dL (3.5-5.0); Anion Gap 13 (12-20); Aspartate Amino Transferase 43 U/L (5-37); Bilirubin Total 0.7 mg/dL (0.0-1.0); Blood Urea Nitrogen 25 mg/dL (9-16); Calcium 9.6 mg/dL (8.4-10.2); Carbon Dioxide 26 mmol/L (22-29); Chloride 107 mmol/L (96-108); Cholesterol 145 mg/dL (<200); Estimated Glomerular Filt Rate > 60; Glucose Fasting 105 mg/dL (60-99); HDL Cholesterol 68 mg/dL (>40); LDL Cholesterol Calculated 59 mg/dL (<100); Potassium 4.7 mmol/L (3.3-5.1); Sodium 141 mmol/L (135-145); Total Protein 7.1 g/dL (6.5-8.0); Triglycerides 93 mg/dL (<150)
[2024-10-16 15:16] LABS: Alkaline Phosphatase 74 U/L (39-117)
== END 2024-10-16 11:02 | disposition home or self-care (01) ==
LOC: HO.LAB 11:01
PROVIDERS: PCP Internal Medicine; Visit Provider Internal Medicine
DX: E78.00 Pure hypercholesterolemia, unspecified (principal); E55.9 Vitamin D deficiency, unspecified; R73.01 Impaired fasting glucose
CPT/HCPCS: 36415; 80053; 80061; 81001; 82306; 83036; 84443

== ENCOUNTER 2024-10-18 11:59 | Outpatient (REF) | payer MEDICARE, SELFPAY ==
[2024-10-18 12:12] LABS: MANUAL DIFF FLAG NO
[2024-10-18 12:47] LABS: Basophils Absolute Auto 0.1 X10*3/uL (0.0-0.2); Basophils Percent Auto 0.9 % (0-2); Eosinophils Absolute Auto 0.2 X10*3/uL (0.0-0.4); Eosinophils Percent Auto 2.9 % (0-4); Hemoglobin 13.7 g/dl (14.0-18.0); Imm Gran Abs Auto 0.02 X10*3/uL (0.00-0.03); Imm Gran Pct Auto 0.3 % (0.0-0.4); Lymphocytes Absolute Auto 1.8 X10*3/uL (1.2-4.9); Lymphocytes Percent Auto 25.7 % (20-40); Mean Corpuscular HGB Conc 34.3 g/dl (31.0-36.0); Mean Corpuscular Hemoglobin 31.9 pg (27.0-33.0); Mean Corpuscular Volume 93.2 fL (80.0-98.0); Mean Platelet Volume 10.5 fL (9.4-12.4); Monocytes Absolute Auto 0.6 X10*3/uL (0.1-1.2); Monocytes Percent Auto 8.6 % (2-11); Neutrophils Absolute Auto 4.2 x10*3/uL (2.0-8.3); Neutrophils Percent Auto 61.6 % (45-73); Platelet Count 137 X10*3/uL (160-400); Red Blood Count 4.29 X10*6/uL (4.60-5.80); Red Cell Distribution Width 12.7 % (11.0-16.0); White Blood Count 6.9 X10*3/uL (4.8-10.8)
== END 2024-10-18 12:00 | disposition home or self-care (01) ==
LOC: HO.LAB 11:59
PROVIDERS: PCP Internal Medicine; Visit Provider Internal Medicine
DX: D64.9 Anemia, unspecified (principal)
CPT/HCPCS: 36415; 85025

== ENCOUNTER 2024-10-23 16:35 | Outpatient (AMB) | payer MEDICARE, SELFPAY ==
[2024-10-23 16:48] VITALS: BP 122/80; PULSE 58; O2SAT 99; BMI 22.6
--- NOTE | 2024-10-23 16:48 | MHC.PC.OV ---
Vital Signs 10/23/24 16:48 Height 5 ft 5 in Weight 135 lb 9.349 oz BMI 22.6 BP 122/80 Blood Pressure Location Lt brachial Position Sitting Pulse 58 Pulse Source Pulse Oximeter Pulse Oximetry (%) 99 Oxygen Delivery Method Room Air Intake Visit Reasons: 6 MONTHS Inbound Sales Manager Required: No Accompanied by: Self / Same As Patient Allergies No Known Allergies [No Known Allergies*] Allergy (Verified 10/23/24 17:11) Medication List - Last Reconciled 10/23/24 by Pancho Quiñones MD aspirin 81 mg PO DAILY atorvastatin 80 mg PO DAILY clopidogrel 75 mg PO DAILY lisinopril 5 mg PO DAILY metoprolol succinate ER 25 mg PO DAILY Tobacco use date assessed: 10/23/24 Fall risk assessment: No Falls in past year Last assessed Fall Risk: 10/23/24 Dental Screening Dental Screen Date: 10/23/24 Did you have a dental visit in the last 12 months?: Yes Did you have a dental problem in the last 6 months where you did not have access to dental care?: No Was dental information given to patient?: Patient has dentist HPI 6 MONTHS HPI Details Patient comes in today for his follow up visit States that he feels okay He denies any headaches but reports experiencing a brief bout of dizziness about a week ago Recalls that he was at confucianist that day and turned around suddenly and before he had a chance to start walking, he suddenly felt very dizzy and lost his balance States that fortunately there were a few people around him who caught him before he fell States that his dizziness gradually subsided after a few minutes and has not recurred since He was reportedly advised by his daughter that he likely was dehydrated at the time as he usually hardly drinks any water throughout the day; states that he mostly drinks coffee Patient states that he has been trying to drink some water as often as he can throughout the day He denies any exertional chest pains or increased SOB - states again that he has no significant limitations in terms of his daily activities No nausea/vomiting, no abdominal pain No change in bowel habits noted He had his follow up labs done last week - to discuss his results [facility] Medical History Systolic congestive heart failure Allergic rhinitis Elevated LFTs Thrombocytopenia Anemia Impaired fasting glucose Pure hypercholesterolemia Benign essential hypertension Cerebrovascular accident (CVA) Coronary artery disease Surgical History History of coronary artery bypass graft Family History Father No problems noted. Mother No problems noted. Sister In good health Son In good health Daughter In good health Social History Housing: House Alcohol intake: current Alcohol intake frequency: a few times a week Alcohol type: beer Patient Tobacco Use Status: Former Tobacco user e-Cigarette/Vaping Use: Never Used Second Hand Smoke Exposure: Yes service: Yes Current occupational status: retired Cognitive needs: No Hearing needs: No Vision needs: No Questionnaire PHQ-9 Over the last 2 weeks, how often have you been bothered by any of the following problems? 1. Little interest or pleasure in doing things: not at all 2. Feeling down, depressed, or hopeless: not at all 3. Trouble falling or staying asleep, or sleeping too much: not at all 4. Feeling tired or having little energy: not at all 5. Poor appetite or overeating: not at all 6. Feeling bad about yourself - or that you are a failure or have let yourself or your family down: not at all 7. Trouble concentrating on things, such as reading the newspaper or watching television: not at all 8. Moving or speaking so slowly that other people could have noticed. Or the opposite - being so fidgety or restless that you have been moving around a lot more than usual: not at all 9. Thoughts that you would be better off or of hurting yourself in some way: not at all Total score: 0 Depression Screening Interpretation: Negative Depression Screening Done: Yes 55990 - PHQ-9 Billing: Yes Source: Developed by Drs. Romulo Woo, Dolores Correa, Francisco Mendoza and colleagues, with an educational ash from [employer]. Thrive Questionnaire Date Thrive assessed: 10/23/24 I am a: Patient What is your living situation today?: I have a steady place to live Within the past 12 months, did the food you bought not last and you didn't have the money to get more?: Never true Within the past 12 months, did you worry whether your food would run out before you got money to buy more?: Never true Do you have trouble paying for medicines?: No Do you have trouble getting transportation to medical appointments?: No Do you have trouble paying your heating and electricity bill?: No Do you have trouble taking care of your child, family member or friend?: No Do you have trouble with day-to-day activities such as bathing, preparing meals, shopping, managing finances, etc.?: No Are you currently unemployed and looking for a job?: No Are you interested in more education?: No Please select the resources that you would like help with: None Currently or been in a relationship where the following occur: No concerns reported THRIVE Score: 0 AUDIT C Alcohol Use Questionnaire (AUDIT-C) 1. How often do you have a drink containing alcohol?: 2-3 times a week 2. How many drinks containing alcohol do you have on a typical day when you are drinking?: 1 or 2 Total Score: 3 Score Reviewed/Action Taken: Yes MELANIE-7 AMB Questionnaire MELANIE-7 Date MELANIE - 7 assessed: 10/23/24 Feeling nervous, anxious, or on edge: 0 = Not at all Not being able to stop or control worryin = Not at all Worrying too much about different things: 0 = Not at all Trouble relaxin = Not at all Being so restless that it is hard to sit still: 0 = Not at all Becoming easily annoyed or irritable: 0 = Not at all Feeling afraid as if something awful might happen: 0 = Not at all Total MELANIE-7 score (0-4 normal; 5-9 mild; 10-14 moderate; 15-21 severe): 0 Source: Developed by Drs. Romulo Woo, Dolores Correa, Francisco Mendoza and colleagues, with an educational ash from [employer]. Review of Systems Const Denies chills, Denies fatigue, Denies fever(s) and Denies headache(s) ENT Denies dysphagia, Reports dizziness (had an isolated episode last week - see HPI for details), Denies otalgia, Denies headache(s), Denies neck pain, Denies odynophagia and Denies sore throat Card Denies chest pain, Denies palpitations and Denies dyspnea Resp Denies chest congestion, Denies cough and Denies dyspnea GI Denies abdominal pain, Denies constipation, Denies dysphagia, Denies heartburn, Denies diarrhea, Denies nausea, Denies odynophagia and Denies vomiting Denies dysuria, Reports nocturia, Reports urinary frequency and Reports urinary incontinence (occasional urge incontinence) Musc Denies back pain, Denies arthralgias and Denies neck pain Skin/Breast Denies rash Neuro Reports dizziness (had an isolated episode last week - see HPI for details) and Denies headache(s) Endo Denies fatigue and Denies palpitations Physical exam (Primary Care) Vital Signs: Last Vital Signs Pulse 58 10/23/24 16:48 BP 122/80 10/23/24 16:48 Pulse Ox 99 10/23/24 16:48 Oxygen Delivery Method Room Air 10/23/24 16:48 BMI result Body Mass Index 22.6 Tobacco/Smoking Status: Tobacco use Status Tobacco use date assessed 10/23/24 10/23/24 16:51 Patient Tobacco Use Status Former Tobacco user 10/23/24 16:51 e-Cigarette/Vaping Use Never Used 10/23/24 16:51 PHQ-9: PHQ-9 Score PHQ-9: Total score 0 10/23/24 19:21 Depression Screening Interpretation: Negative Thrive Assessment: Date of Thrive Assessment Date Thrive assessed 10/23/24 10/23/24 16:51 Currently or been in a relationship where the following occur: No concerns reported Const General: no acute distress and alert HENMT Ears: TM's normal bilaterally and EAC's normal Throat: Yes posterior oropharynx normal and Yes tonsils normal (no TP congestion) Neck Neck: Yes no lymphadenopathy and Yes supple Resp Auscultation: clear to auscultation bilaterally, no rales and no wheezes Cardio Rate: regular rate Rhythm: regular rhythm Heart sounds: no murmurs GI Palpation (GI): Soft to palpation and nontender Auscultation: normal bowel sounds General: Yes no CVA tenderness Back/Spine/Pelvis Back: no CVA tenderness Thoracic/Lumbar Spine: No lumbar spinal tenderness Skin Rashes: no rashes Extrem General: Yes no clubbing, cyanosis or edema Results Reviewed Results Reviewed: Laboratory Tests 10/16/24 10/16/24 10/18/24 11:14 11:15 12:11 WBC 6.9 Hgb 13.7 L Hct 40.0 L Plt Count 137 L Sodium 141 Potassium 4.7 Creatinine 1.07 Estimated GFR > 60 Fasting Glucose 105 H Hemoglobin A1c % 6.0 Calcium 9.6 AST 43 H ALT 35 Triglycerides 93 Cholesterol 145 LDL Cholesterol, Calc 59 HDL Cholesterol 68 25-OH Vitamin D Total 35.7 TSH 1.74 Ur Specific [place] 1.020 Urine Protein Negative Urine Glucose (UA) Negative Urine Blood Trace H Urine Nitrite Negative Ur Leukocyte Esterase Negative Coding Level of Care Code Est Pt Level 4 (11979) Complex EM visit Add On G2211 Diagnoses Coronary artery disease involving [place] coronary artery of [place] heart without angina pectoris I25.10 Associated angina: without angina Coronary Disease-Associated Artery/Lesion type: [place] artery [place] vs. transplanted heart: [place] heart Cerebrovascular accident (CVA), unspecified mechanism I63.9 CVA mechanism: unspecified Systolic congestive heart failure, unspecified HF chronicity I50.20 Heart failure chronicity: unspecified Dizziness R42 Pure hypercholesterolemia E78.00 Benign essential hypertension I10 Impaired fasting glucose R73.01 Anemia, unspecified type D64.9 Anemia type: unspecified type Thrombocytopenia D69.6 Elevated LFTs R79.89 Allergic rhinitis, unspecified seasonality, unspecified trigger J30.9 Allergic rhinitis seasonality: unspecified Allergic rhinitis trigger: unspecified Benign prostatic hyperplasia with urinary frequency N40.1; R35.0 Additional Codes PHQ-9 - 30673 - PHQ-9 Billing: Yes ([id number]) Assessment & Plan Assessment & Plan (1) Coronary artery disease: Comment: S/P CABG x 3 at [facility] on 03/08/2018 S/P cardiac rehab Code(s): I25.10 - Atherosclerotic heart disease of [place] coronary artery without angina pectoris Category: Medical Qualifiers: Associated angina: without angina Coronary Disease-Associated Artery/Lesion type: [place] artery [place] vs. transplanted heart: [place] heart Qualified Code(s): I25.10 - Atherosclerotic heart disease of [place] coronary artery without angina pectoris Plan: Patient remains asymptomatic and is very active with hardly any limitations to his daily ADLs Continue Clopidogrel 75 mg QD and continue lifelong anticoagulation with low dose Aspirin 81 mg QD Continue Metoprolol ER 25 mg QD He had repeat echocardiogram, myocardial perfusion scan and stress testing done back in February 2023 Echo revealed preserved LV systolic function with wall motion abnormality in the RCA territory Myocardial perfusion scan showed (+) moderate-sized mild to moderate intensity basal and mid inferolateral and inferior wall ischemia in RCA/circumflex distribution. Gated LVEF is 54% Stress EKG was negative for ischemia and his exercise time on the treadmill was 8-1/2 minutes on Ray protocol He is advised to continue with aggressive risk factor modification Follow up with cardiology as scheduled - will be seeing cardiology again in 1 year (2) Cerebrovascular accident (CVA): Code(s): I63.9 - Cerebral infarction, unspecified Category: Medical Qualifiers: CVA mechanism: unspecified Qualified Code(s): I63.9 - Cerebral infarction, unspecified Plan: Have emphasized again to patient the need to aggressively control his risk factors (BP and cholesterol primarily) to minimize risks of recurrence (3) Systolic congestive heart failure: Comment: EF was at 40% on most recent echocardiogram Code(s): I50.20 - Unspecified systolic (congestive) heart failure Category: Medical Qualifiers: Heart failure chronicity: unspecified Qualified Code(s): I50.20 - Unspecified systolic (congestive) heart failure Plan: He is currently compensated with no heart failure symptoms Repeat echocardiogram done in February 2023 revealed preserved LV systolic function with normal LVEF at 55 to 60%, with wall motion abnormality in the RCA territory Follow up with cardiology as scheduled (4) Dizziness: Code(s): R42 - Dizziness and giddiness Category: Medical Plan: He had an isolated incident of dizziness last week - was likely due to dehydration as he hardly drinks any water all day long States that he drinks coffee instead, which as explained to patient is a diuretic and can actually makes his dehydration worse Have reminded patient to continue to increase his oral fluid intake regularly and to inform us BLANQUITA if he continues to experience recurrent dizziness (5) Pure hypercholesterolemia: Code(s): E78.00 - Pure hypercholesterolemia, unspecified Category: Medical Plan: Results of his labs done last week reviewed and discussed with patient Reinforced low cholesterol diet Continue Atorvastatin 80 mg QD Will recheck his labs and fasting lipids in 6 months for follow up (6) Benign essential hypertension: Code(s): I10 - Essential (primary) hypertension Category: Medical Plan: Reinforced low sodium diet - goal is systolic BP of 120 mm or less Continue Lisinopril 5 mg QD and Metoprolol ER 25 mg QD (7) Impaired fasting glucose: Code(s): R73.01 - Impaired fasting glucose Category: Medical Plan: HgbA1c was at 6.0% on his labs done last week; was previously at 5.8% a few months ago Have cautioned patient that his HgbA1c has been slowly but steadily rising over the past few years and that he should try to watch his diet better or he may get to a point wherein he has to start taking Rx for his blood sugar Reinforced low calorie diet/exercise as tolerated (8) Anemia: Code(s): D64.9 - Anemia, unspecified Category: Medical Qualifiers: Anemia type: unspecified type Qualified Code(s): D64.9 - Anemia, unspecified Plan: Improved/stable Will continue to monitor his CBC regularly (9) Thrombocytopenia: Code(s): D69.6 - Thrombocytopenia, unspecified Category: Medical Plan: Mild/stable, with no acute bleeding - most likely due to current antiplatelet Tx Will continue to monitor his platelet count regularly (10) Elevated LFTs: Code(s): R79.89 - Other specified abnormal findings of blood chemistry Category: Medical Plan: His serum AST is again slightly elevated on his recent labs; ALT remains normal Reinforced avoidance of high-dose Acetaminophen Rx; patient states that he does not drink alcohol Will continue to monitor his LFTs regularly (11) Allergic rhinitis: Code(s): J30.9 - Allergic rhinitis, unspecified Category: Medical Qualifiers: Allergic rhinitis seasonality: unspecified Allergic rhinitis trigger: unspecified Qualified Code(s): J30.9 - Allergic rhinitis, unspecified Plan: Continue OTC Loratadine 10 mg QD PRN (12) Benign prostatic hyperplasia with urinary frequency: Code(s): N40.1 - Benign prostatic hyperplasia with lower urinary tract symptoms; R35.0 - Frequency of micturition Category: Medical Plan: He was started on Finasteride 5 mg QD by urology previously but patient stopped taking this a while back as he felt that the medication was not helping States that he has not had any problems since he stopped taking the medication Follow up with urology as scheduled Plan Follow up in 6 months Orders: Orders Comprehensive [place]. Panel Fast 6 Months E78.00 - Pure hypercholesterolemia, unspecified Hemoglobin A1c 6 Months R73.01 - Impaired fasting glucose Lipid Panel 6 Months E78.00 - Pure hypercholesterolemia, unspecified B Type Natriuretic Peptide 6 Months I50.9 - Heart failure, unspecified Complete Blood Count Auto Diff 6 Months D64.9 - Anemia, unspecified UA CC w/rflx Micro + Cult 6 Months R30.0 - Dysuria Vitamin D 25-OH Total 6 Months E55.9 - Vitamin D deficiency, unspecified Vitamin B12 and Folate 6 Months E53.8 - Deficiency of other specified B group vitamins
== END 2024-10-23 17:41 | disposition home or self-care (01) ==
LOC: HO.HMCH 16:36
PROVIDERS: PCP Internal Medicine; Visit Provider Internal Medicine
DX: I25.10 Atherosclerotic heart disease of native coronary artery without angina pectoris (principal); I63.9 Cerebral infarction, unspecified; I50.20 Unspecified systolic (congestive) heart failure; R42 Dizziness and giddiness; E78.00 Pure hypercholesterolemia, unspecified; I10 Essential (primary) hypertension; R73.01 Impaired fasting glucose; D64.9 Anemia, unspecified; D69.6 Thrombocytopenia, unspecified; R79.89 Other specified abnormal findings of blood chemistry; J30.9 Allergic rhinitis, unspecified; N40.1 Benign prostatic hyperplasia with lower urinary tract symptoms; R35.0 Frequency of micturition

== ENCOUNTER → 2024-10-23 16:35 | Outpatient (BNVA) | payer MEDICARE, SELFPAY | PROVIDERS: PCP Internal Medicine; Visit Provider Internal Medicine | DX: I25.10 Atherosclerotic heart disease of native coronary artery without angina pectoris (principal); I11.0 Hypertensive heart disease with heart failure; I50.20 Unspecified systolic (congestive) heart failure; I63.9 Cerebral infarction, unspecified; R42 Dizziness and giddiness; E78.00 Pure hypercholesterolemia, unspecified; R73.01 Impaired fasting glucose; D64.9 Anemia, unspecified; D69.6 Thrombocytopenia, unspecified; R79.89 Other specified abnormal findings of blood chemistry; J30.9 Allergic rhinitis, unspecified; N40.1 Benign prostatic hyperplasia with lower urinary tract symptoms; R35.0 Frequency of micturition | CPT/HCPCS: 96127; 99212 ==

== ENCOUNTER 2025-02-13 12:15 | Outpatient (AMB) | payer MEDICARE, SELFPAY ==
[2025-02-13 12:33] VITALS: BP 120/72; PULSE 55; BMI 22.0
--- NOTE | 2025-02-13 12:33 | A.OFFVIS_ITS ---
Vital Signs 02/13/25 12:33 Height 5 ft 5 in Weight 132 lb 4.438 oz BMI 22.0 BP 120/72 Blood Pressure Location Lt brachial Position Sitting Pulse 55 Intake Visit Reasons: 1 year follow up Intake Note: 1 year follow-up with ekg feeling good Surgical Assistant Certified Required: No Psychologist Clinical: Psychologist Clinical Present Accompanied by: Spouse Allergies No Known Allergies (No Known Allergies*) Allergy (Verified 10/23/24 17:11) Medication List - Last Reconciled 02/13/25 by Alfredo Herrera MD aspirin 81 mg PO DAILY atorvastatin 80 mg PO DAILY clopidogrel 75 mg PO DAILY lisinopril 5 mg PO DAILY metoprolol succinate ER 25 mg PO DAILY HPI Comments Details: Steven comes for follow-up. He is doing very well. He exercises regularly and walks for hour to hour and half every day. He also does strength exercises. Denies any cardiovascular symptoms. No exertional chest pain or shortness of breath. No orthopnea, PND, leg edema. No new neurologic symptoms. Takes all his medications. Blood pressure is generally well controlled. Last LDL at 57 mg per dL [facility] Medical History (Updated 02/13/25 @ 12:49 by Alfredo Herrera MD) Systolic congestive heart failure Allergic rhinitis Elevated LFTs Thrombocytopenia Anemia Impaired fasting glucose Pure hypercholesterolemia Benign essential hypertension Cerebrovascular accident (CVA) Coronary artery disease Surgical History History of coronary artery bypass graft Family History Father No problems noted. Mother No problems noted. Sister In good health Son In good health Daughter In good health Social History Housing: House Alcohol intake: current Alcohol intake frequency: a few times a week Alcohol type: beer Patient Tobacco Use Status: Former Tobacco user e-Cigarette/Vaping Use: Never Used Second Hand Smoke Exposure: Yes service: Yes Current occupational status: retired Cognitive needs: No Hearing needs: No Vision needs: No Review of Systems Const Denies chills, Denies fatigue, Denies fever(s), Denies frequent falls, Denies weakness, Denies weight gain and Denies weight loss ENT Denies dizziness Card Denies chest pain, Denies leg edema, Denies lightheadedness, Denies palpitations, Denies dyspnea, Denies dyspnea on exertion, Denies orthopnea and Denies other (loss of consciousness) Resp Denies cough, Denies dyspnea and Denies dyspnea on exertion GI Denies hematochezia and Denies change in stool character Musc Denies abnormal gait, Denies muscle weakness, Denies numbness, Denies radiating pain into limb and Denies tingling Neuro Denies abnormal gait, Denies dizziness, Denies frequent falls, Denies numbness, Denies tingling and Denies weakness Endo Denies fatigue and Denies palpitations Physical Exam Vital Signs: Last Vital Signs Pulse 55 02/13/25 12:33 BP 120/72 02/13/25 12:33 BMI result Body Mass Index 22.0 Const General: cooperative, comfortable, no acute distress, alert and awake Nutritional Appearance: average body habitus Orientation/consciousness: patient oriented x3 Limitations: no limitations Neck Neck: Yes trachea midline, Yes supple and Yes no JVD Carotids: no bruits Chest Chest palpation & inspection: other (Well-healed sternotomy scar) Resp Effort & Inspection: normal respiratory effort Auscultation: clear to auscultation bilaterally Cardio Jugular venous distension: no JVD Palpation: normal PMI Rate: regular rate Rhythm: regular rhythm Heart sounds: S1 normal heart sound present, S2 normal heart sound present, no click, no gallops and Murmur heart sound present systolic early GI Auscultation: normal bowel sounds Skin General skin exam: no rashes or lesions noted and ecchymosis Neuro General: patient oriented x3 and no focal motor deficits Extrem General: Yes no clubbing, cyanosis or edema Psych Appearance: grossly normal Office Procedures EKG Details: EKG shows sinus bradycardia with inferior [place] [address]-[id number], Complete Assessment & Plan Assessment & Plan (1) Coronary artery disease: Comment: S/P CABG x 3 at [facility] on 03/08/2018 S/P cardiac rehab Code(s): I25.10 - Atherosclerotic heart disease of [place] coronary artery without angina pectoris Category: Medical Qualifiers: Coronary Disease-Associated Artery/Lesion type: [place] artery [place] vs. transplanted heart: [place] heart Associated angina: without angina Qualified Code(s): I25.10 - Atherosclerotic heart disease of [place] coronary artery without angina pectoris Plan: CAD with remote coronary artery bypass grafting with myocardial perfusion imaging in 2022 showing mild ischemia in RCA circumflex distribution. He is currently not having any symptoms related to the same. Continue maintain exercise level. Continue current antianginal therapy with metoprolol. Continue high-intensity statin therapy with well optimized LDL. Continue dual antiplatelet therapy as he also has prior history of stroke. (2) Benign essential hypertension: Code(s): I10 - Essential (primary) hypertension Category: Medical Plan: Hypertension which is currently well optimized advised to monitor blood pressure at home maintain a log. Goal blood pressure less than 130/84. Low-salt diet was discussed. Will follow up in the clinic in 1 year's time after an echocardiogram. Thank you for allowing me to partake in his care Coding Level of Care Code Est Pt Level 4 (96058) Complex EM visit Add On G2211 Diagnoses Coronary artery disease involving [place] coronary artery of [place] heart without angina pectoris I25.10 Coronary Disease-Associated Artery/Lesion type: [place] artery [place] vs. transplanted heart: [place] heart Associated angina: without angina Benign essential hypertension I10 CPT Codes EKG - CPT: 49994-[id number], Complete ([id number])
== END 2025-02-13 12:49 | disposition home or self-care (01) ==
LOC: HO.HCS 12:16
PROVIDERS: PCP Internal Medicine; Visit Provider Internal Medicine Cardiovascular Disease
DX: I25.10 Atherosclerotic heart disease of native coronary artery without angina pectoris (principal); I10 Essential (primary) hypertension
CPT/HCPCS: 93010; 99214; G2211

== ENCOUNTER → 2025-02-13 12:15 | Outpatient (BNVA) | payer MEDICARE, SELFPAY | PROVIDERS: PCP Internal Medicine; Visit Provider Internal Medicine Cardiovascular Disease | DX: I25.10 Atherosclerotic heart disease of native coronary artery without angina pectoris (principal); I10 Essential (primary) hypertension; Z87.891 Personal history of nicotine dependence | CPT/HCPCS: 93005; 99212 ==

== ENCOUNTER 2025-04-18 10:15 | Outpatient (REF) | payer MEDICARE, SELFPAY ==
[2025-04-18 10:44] LABS: MANUAL DIFF FLAG NO
[2025-04-18 11:18] LABS: Hematocrit 41.7 % (42.0-52.0); Hemoglobin 13.7 g/dl (14.0-18.0); Imm Gran Abs Auto 0.01 X10*3/uL (0.00-0.03); Imm Gran Pct Auto 0.2 % (0.0-0.4); Lymphocytes Absolute Auto 1.7 X10*3/uL (1.2-4.9); Mean Corpuscular HGB Conc 32.9 g/dl (31.0-36.0); Mean Corpuscular Hemoglobin 31.3 pg (27.0-33.0); Mean Corpuscular Volume 95.2 fL (80.0-98.0); NRBC Abs Auto 0.000 X10*3/uL (0.0-0.012); NRBC Pct Auto 0.0 /100WBC (0.0-0.2); Platelet Count 130 X10*3/uL (160-400); Red Blood Count 4.38 X10*6/uL (4.60-5.80); White Blood Count 6.6 X10*3/uL (4.8-10.8)
[2025-04-18 12:11] LABS: Alanine Aminotransferase 40 U/L (0-40); Albumin Level 4.5 g/dL (3.5-5.0); Alkaline Phosphatase 89 U/L (39-117); Anion Gap 11 (12-20); Aspartate Amino Transferase 41 U/L (5-37); Blood Urea Nitrogen 28 mg/dL (9-16); Calcium 9.9 mg/dL (8.4-10.2); Carbon Dioxide 27 mmol/L (22-29); Chloride 109 mmol/L (96-108); Cholesterol 143 mg/dL (<200); Estimated Glomerular Filt Rate 53; HDL Cholesterol 67 mg/dL (>40); Potassium 5.1 mmol/L (3.3-5.1); Sodium 142 mmol/L (135-145); Total Protein 7.0 g/dL (6.5-8.0); Triglycerides 87 mg/dL (<150)
[2025-04-18 12:31] LABS: Folate 13.0 ng/mL (> or = 4.0); Vitamin B12 981 pg/mL (200-900)
[2025-04-18 13:22] LABS: Appearance Urine Clear; Glucose Urine UA Negative (Negative); PH 5.0 (5.0-9.0); Specific Gravity - Urine 1.015 (1.005-1.025)
== END 2025-04-18 10:16 | disposition home or self-care (01) ==
LOC: HO.LAB 10:15
PROVIDERS: PCP Internal Medicine; Visit Provider Internal Medicine
DX: E53.8 Deficiency of other specified B group vitamins (principal); R30.0 Dysuria; R73.01 Impaired fasting glucose; E78.00 Pure hypercholesterolemia, unspecified; D64.9 Anemia, unspecified; E55.9 Vitamin D deficiency, unspecified
CPT/HCPCS: 36415; 80053; 80061; 81003; 82306; 82607; 82746; 83036; 85025

== ENCOUNTER 2025-04-23 16:11 | Outpatient (AMB) | payer MEDICARE, SELFPAY ==
[2025-04-23 16:16] VITALS: BP 104/68; PULSE 55; O2SAT 98; BMI 22.5
--- NOTE | 2025-04-23 16:16 | MHC.PC.OV ---
Vital Signs 04/23/25 16:16 Height 5 ft 5 in Weight 135 lb 4 oz BMI 22.5 BP 104/68 Blood Pressure Location Lt brachial Position Sitting Pulse 55 Pulse Source Pulse Oximeter Pulse Oximetry (%) 98 Oxygen Delivery Method Room Air Intake Visit Reasons: 6 month f/u [facility] Accommodation Consultant Required: No Accompanied by: Self / Same As Patient Allergies No Known Allergies (No Known Allergies*) Allergy (Verified 04/23/25 16:48) Medication List - Last Reconciled 04/23/25 by Pancho Quiñones MD aspirin 81 mg PO DAILY atorvastatin 80 mg PO DAILY clopidogrel 75 mg PO DAILY lisinopril 5 mg PO DAILY metoprolol succinate ER 25 mg PO DAILY Tobacco use date assessed: 04/23/25 Fall risk assessment: No Falls in past year Last assessed Fall Risk: 04/23/25 Dental Screening Dental Screen Date: 04/23/25 Did you have a dental visit in the last 12 months?: Yes Did you have a dental problem in the last 6 months where you did not have access to dental care?: No Was dental information given to patient?: Patient has dentist HPI 6 month f/u HPI Details Patient comes in today for his follow up visit States that he feels okay He denies any headaches or dizziness Denies any exertional chest pains or increased SOB - states again that he has no significant limitations with his overall daily activities No nausea/vomiting, no abdominal pain No change in bowel habits noted He had his follow up labs done a few days ago - to discuss his results [facility] Medical History Systolic congestive heart failure Allergic rhinitis Elevated LFTs Thrombocytopenia Anemia Impaired fasting glucose Pure hypercholesterolemia Benign essential hypertension Cerebrovascular accident (CVA) Coronary artery disease Surgical History History of coronary artery bypass graft Family History Father No problems noted. Mother No problems noted. Sister In good health Son In good health Daughter In good health Social History Housing: House Alcohol intake: current Alcohol intake frequency: a few times a week Alcohol type: beer Patient Tobacco Use Status: Former Tobacco user e-Cigarette/Vaping Use: Never Used Second Hand Smoke Exposure: Yes service: Yes Current occupational status: retired Cognitive needs: No Hearing needs: No Vision needs: No Questionnaire PHQ-9 Over the last 2 weeks, how often have you been bothered by any of the following problems? 1. Little interest or pleasure in doing things: not at all 2. Feeling down, depressed, or hopeless: not at all 3. Trouble falling or staying asleep, or sleeping too much: not at all 4. Feeling tired or having little energy: not at all 5. Poor appetite or overeating: not at all 6. Feeling bad about yourself - or that you are a failure or have let yourself or your family down: not at all 7. Trouble concentrating on things, such as reading the newspaper or watching television: not at all 8. Moving or speaking so slowly that other people could have noticed. Or the opposite - being so fidgety or restless that you have been moving around a lot more than usual: not at all 9. Thoughts that you would be better off or of hurting yourself in some way: not at all Total score: 0 Depression Screening Interpretation: Negative Depression Screening Done: Yes 83828 - PHQ-9 Billing: Yes Source: Developed by Drs. Romulo Woo, Dolores Correa, Francisco Mendoza and colleagues, with an educational ash from [employer]. Thrive Questionnaire Date Thrive assessed: 04/23/25 I am a: Patient What is your living situation today?: I choose not to answer this question Within the past 12 months, did the food you bought not last and you didn't have the money to get more?: I choose not to answer this question Within the past 12 months, did you worry whether your food would run out before you got money to buy more?: I choose not to answer this question Do you have trouble paying for medicines?: I choose not to answer this question Do you have trouble getting transportation to medical appointments?: I choose not to answer this question Do you have trouble paying your heating and electricity bill?: I choose not to answer this question Do you have trouble taking care of your child, family member or friend?: I choose not to answer this question Do you have trouble with day-to-day activities such as bathing, preparing meals, shopping, managing finances, etc.?: I choose not to answer this question Are you currently unemployed and looking for a job?: I choose not to answer this question Are you interested in more education?: I choose not to answer this question Please select the resources that you would like help with: None Currently or been in a relationship where the following occur: I choose not to answer THRIVE Score: 0 AUDIT C Alcohol Use Questionnaire (AUDIT-C) 1. How often do you have a drink containing alcohol?: Never 3. How often do you have six or more drinks on one occasion?: Never Total Score: 0 Score Reviewed/Action Taken: Yes MELANIE-7 AMB Questionnaire MELANIE-7 Date MELANIE - 7 assessed: 04/23/25 Feeling nervous, anxious, or on edge: 0 = Not at all Not being able to stop or control worryin = Not at all Worrying too much about different things: 0 = Not at all Trouble relaxin = Not at all Being so restless that it is hard to sit still: 0 = Not at all Becoming easily annoyed or irritable: 0 = Not at all Feeling afraid as if something awful might happen: 0 = Not at all Total MELANIE-7 score (0-4 normal; 5-9 mild; 10-14 moderate; 15-21 severe): 0 Source: Developed by Drs. Romulo Woo, Dolores Correa, Francisco Mendoza and colleagues, with an educational ash from [id number]. Review of Systems Const Denies chills, Denies fatigue, Denies fever(s) and Denies headache(s) ENT Denies dysphagia, Denies dizziness, Denies otalgia, Denies headache(s), Denies neck pain, Denies odynophagia and Denies sore throat Card Denies chest pain, Denies palpitations and Denies dyspnea Resp Denies chest congestion, Denies cough and Denies dyspnea GI Denies abdominal pain, Denies constipation, Denies dysphagia, Denies heartburn, Denies diarrhea, Denies nausea, Denies odynophagia and Denies vomiting Denies difficulty urinating, Denies dysuria, Reports nocturia, Reports urinary frequency and Reports urinary incontinence (occasional urge incontinence) Musc Denies back pain, Denies arthralgias and Denies neck pain Skin/Breast Denies rash Neuro Denies dizziness and Denies headache(s) Endo Denies fatigue and Denies palpitations Physical exam (Primary Care) Vital Signs: Last Vital Signs Pulse 55 04/23/25 16:16 BP 104/68 04/23/25 16:16 Pulse Ox 98 04/23/25 16:16 Oxygen Delivery Method Room Air 04/23/25 16:16 BMI result Body Mass Index 22.5 Tobacco/Smoking Status: Tobacco use Status Tobacco use date assessed 04/23/25 04/23/25 16:19 Patient Tobacco Use Status Former Tobacco user 04/23/25 16:19 e-Cigarette/Vaping Use Never Used 04/23/25 16:19 PHQ-9: PHQ-9 Score PHQ-9: Total score 0 05/06/25 10:42 Depression Screening Interpretation: Negative Thrive Assessment: Date of Thrive Assessment Date Thrive assessed 04/23/25 04/23/25 16:19 Currently or been in a relationship where the following occur: I choose not to answer Const General: no acute distress and alert HENMT Ears: TM's normal bilaterally and EAC's normal Throat: Yes posterior oropharynx normal and Yes tonsils normal (no TP congestion) Neck Neck: Yes no lymphadenopathy and Yes supple Resp Auscultation: clear to auscultation bilaterally, no rales and no wheezes Cardio Rate: regular rate Rhythm: regular rhythm Heart sounds: no murmurs GI Palpation (GI): Soft to palpation and nontender Auscultation: normal bowel sounds General: Yes no CVA tenderness Back/Spine/Pelvis Back: no CVA tenderness Thoracic/Lumbar Spine: No lumbar spinal tenderness Skin Rashes: no rashes Extrem General: Yes no clubbing, cyanosis or edema Results Reviewed Results Reviewed: Laboratory Tests 04/18/25 04/18/25 10:42 11:22 WBC 6.6 Hgb 13.7 L Hct 41.7 L Plt Count 130 L Sodium 142 Potassium 5.1 Creatinine 1.30 Estimated GFR 53 Fasting Glucose 112 H Hemoglobin A1c % 6.0 Calcium 9.9 AST 41 H ALT 40 Triglycerides 87 Cholesterol 143 LDL Cholesterol, Calc 59 HDL Cholesterol 67 Vitamin B12 981 H 25-OH Vitamin D Total 36.6 Ur Specific [place] 1.015 Urine Protein Negative Urine Glucose (UA) Negative Urine Blood Negative Urine Nitrite Negative Ur Leukocyte Esterase Negative Coding Level of Care Code Est Pt Level 4 (90747) Diagnoses Coronary artery disease involving [place] coronary artery of [place] heart without angina pectoris I25.10 Coronary Disease-Associated Artery/Lesion type: [place] artery [place] vs. transplanted heart: [place] heart Associated angina: without angina Cerebrovascular accident (CVA), unspecified mechanism I63.9 CVA mechanism: unspecified Systolic congestive heart failure, unspecified HF chronicity I50.20 Heart failure chronicity: unspecified Dizziness R42 Pure hypercholesterolemia E78.00 Benign essential hypertension I10 Impaired fasting glucose R73.01 Anemia, unspecified type D64.9 Anemia type: unspecified type Thrombocytopenia D69.6 Elevated LFTs R79.89 Allergic rhinitis, unspecified seasonality, unspecified trigger J30.9 Allergic rhinitis trigger: unspecified Allergic rhinitis seasonality: unspecified Benign prostatic hyperplasia with urinary frequency N40.1; R35.0 Additional Codes PHQ-9 - 21603 - PHQ-9 Billing: Yes ([id number]) Assessment & Plan Assessment & Plan (1) Coronary artery disease: Comment: S/P CABG x 3 at [facility] on 03/08/2018 S/P cardiac rehab Code(s): I25.10 - Atherosclerotic heart disease of [place] coronary artery without angina pectoris Category: Medical Qualifiers: Coronary Disease-Associated Artery/Lesion type: [place] artery [place] vs. transplanted heart: [place] heart Associated angina: without angina Qualified Code(s): I25.10 - Atherosclerotic heart disease of [place] coronary artery without angina pectoris Plan: Patient remains asymptomatic and is very active with hardly any limitations to his daily ADLs Continue Clopidogrel 75 mg QD and continue lifelong anticoagulation with low dose Aspirin 81 mg QD Continue Metoprolol ER 25 mg QD He had repeat echocardiogram, myocardial perfusion scan and stress testing done back in February 2023 Echo revealed preserved LV systolic function with wall motion abnormality in the RCA territory Myocardial perfusion scan showed (+) moderate-sized mild to moderate intensity basal and mid inferolateral and inferior wall ischemia in RCA/circumflex distribution. Gated LVEF is 54% Stress EKG was negative for ischemia and his exercise time on the treadmill was 8-1/2 minutes on Ray protocol He is advised to continue with aggressive risk factor modification Follow up with cardiology as scheduled - he now sees cardiology just once a year (2) Cerebrovascular accident (CVA): Code(s): I63.9 - Cerebral infarction, unspecified Category: Medical Qualifiers: CVA mechanism: unspecified Qualified Code(s): I63.9 - Cerebral infarction, unspecified Plan: Have emphasized again to patient the need to aggressively control his risk factors (BP and cholesterol primarily) to minimize risks of recurrence (3) Systolic congestive heart failure: Comment: EF was at 40% on most recent echocardiogram Code(s): I50.20 - Unspecified systolic (congestive) heart failure Category: Medical Qualifiers: Heart failure chronicity: unspecified Qualified Code(s): I50.20 - Unspecified systolic (congestive) heart failure Plan: He is currently compensated with no heart failure symptoms Repeat echocardiogram done in February 2023 revealed preserved LV systolic function with normal LVEF at 55 to 60%, with wall motion abnormality in the RCA territory Follow up with cardiology as scheduled (4) Dizziness: Code(s): R42 - Dizziness and giddiness Category: Medical Plan: He had an isolated incident of dizziness several months ago with no recurrence since - this was likely due to dehydration as he was hardly drinking any water at all during the day back then He was drinking coffee instead, which as explained to patient is a diuretic and can actually makes his dehydration worse Have reminded patient to continue to increase his oral fluid intake regularly, which he states he has done better since (5) Pure hypercholesterolemia: Code(s): E78.00 - Pure hypercholesterolemia, unspecified Category: Medical Plan: Results of his labs done a few days ago reviewed and discussed with patient Reinforced low cholesterol diet Continue Atorvastatin 80 mg QD Will recheck his labs and fasting lipids in 6 months for follow up (6) Benign essential hypertension: Code(s): I10 - Essential (primary) hypertension Category: Medical Plan: Reinforced low sodium diet - goal is systolic BP of 120 mm or less Continue Lisinopril 5 mg QD and Metoprolol ER 25 mg QD (7) Impaired fasting glucose: Code(s): R73.01 - Impaired fasting glucose Category: Medical Plan: HgbA1c remains at 6.0% on his labs done last week; was previously also at 6.0% a few months ago Reinforced low calorie diet/exercise as tolerated (8) Anemia: Code(s): D64.9 - Anemia, unspecified Category: Medical Qualifiers: Anemia type: unspecified type Qualified Code(s): D64.9 - Anemia, unspecified Plan: Improved/stable Will continue to monitor his CBC regularly (9) Thrombocytopenia: Code(s): D69.6 - Thrombocytopenia, unspecified Category: Medical Plan: Mild/stable, with no acute bleeding - most likely due to current antiplatelet Tx Will continue to monitor his platelet count regularly (10) Elevated LFTs: Code(s): R79.89 - Other specified abnormal findings of blood chemistry Category: Medical Plan: His serum AST is still slightly elevated on his recent labs; ALT remains normal Reinforced avoidance of high-dose Acetaminophen Rx; patient states that he does not drink alcohol Will continue to monitor his LFTs regularly (11) Allergic rhinitis: Code(s): J30.9 - Allergic rhinitis, unspecified Category: Medical Qualifiers: Allergic rhinitis trigger: unspecified Allergic rhinitis seasonality: unspecified Qualified Code(s): J30.9 - Allergic rhinitis, unspecified Plan: Continue OTC Loratadine 10 mg QD PRN (12) Benign prostatic hyperplasia with urinary frequency: Code(s): N40.1 - Benign prostatic hyperplasia with lower urinary tract symptoms; R35.0 - Frequency of micturition Category: Medical Plan: He was started on Finasteride 5 mg QD by urology previously but patient stopped taking this a while back as he felt that the medication was not helping States that he has not had any problems since he stopped taking the medication Follow up with urology as scheduled Plan Follow-up in 6 months Orders: Orders Complete Blood Count Auto Diff 6 Months D64.9 - Anemia, unspecified TSH reflex Free T4 6 Months E78.00 - Pure hypercholesterolemia, unspecified Hemoglobin A1c 6 Months R73.01 - Impaired fasting glucose Lipid Panel 6 Months E78.00 - Pure hypercholesterolemia, unspecified Comprehensive [place]. Panel Fast 6 Months E78.00 - Pure hypercholesterolemia, unspecified UA CC w/rflx Micro + Cult 6 Months R30.0 - Dysuria
== END 2025-04-23 17:15 | disposition home or self-care (01) ==
LOC: HO.HMCH 16:11
PROVIDERS: PCP Internal Medicine; Visit Provider Internal Medicine
DX: I25.10 Atherosclerotic heart disease of native coronary artery without angina pectoris (principal); I63.9 Cerebral infarction, unspecified; I50.20 Unspecified systolic (congestive) heart failure; R42 Dizziness and giddiness; E78.00 Pure hypercholesterolemia, unspecified; I10 Essential (primary) hypertension; R73.01 Impaired fasting glucose; D64.9 Anemia, unspecified; D69.6 Thrombocytopenia, unspecified; R79.89 Other specified abnormal findings of blood chemistry; J30.9 Allergic rhinitis, unspecified; N40.1 Benign prostatic hyperplasia with lower urinary tract symptoms; R35.0 Frequency of micturition

== ENCOUNTER → 2025-04-23 16:11 | Outpatient (BNVA) | payer MEDICARE, SELFPAY | PROVIDERS: PCP Internal Medicine; Visit Provider Internal Medicine | DX: I25.10 Atherosclerotic heart disease of native coronary artery without angina pectoris (principal); I63.9 Cerebral infarction, unspecified; R42 Dizziness and giddiness; E78.00 Pure hypercholesterolemia, unspecified; I11.0 Hypertensive heart disease with heart failure; I50.20 Unspecified systolic (congestive) heart failure; R73.01 Impaired fasting glucose; D64.9 Anemia, unspecified; D69.6 Thrombocytopenia, unspecified; R79.89 Other specified abnormal findings of blood chemistry; J30.9 Allergic rhinitis, unspecified; N40.1 Benign prostatic hyperplasia with lower urinary tract symptoms; R35.0 Frequency of micturition | CPT/HCPCS: 96127; 99212 ==